=== PATIENT | male | born 1970 | race Caucasian/White ===

== ENCOUNTER → 2024-05-18 10:09 | Outpatient (REF) | payer MEDICARE, OTHER, SELFPAY | LOC: RAD 10:09 | PROVIDERS: ATTENDING PHYSICIAN Urology; FAMILY PHYSICIAN Family Medicine | DX: N39.0 Urinary tract infection, site not specified (principal); R33.9 Retention of urine, unspecified; N31.9 Neuromuscular dysfunction of bladder, unspecified | CPT/HCPCS: 74176 ==

== ENCOUNTER 2024-11-05 18:44 | Inpatient (IN) | payer MEDICARE, OTHER, SELFPAY ==
[2024-11-05 11:51] VITALS: BP 139/85
[2024-11-05 12:24] LABS: Hemoglobin 10.6 g/dL (13.0-18.0); Mean Corp Hgb Conc. 33.1 g/dL (33.0-37.0); Mean Corpuscular Hgb 26.5 pg (27.0-31.0); Mean Platelet Volume 10.5 fL (7.4-10.4); Platelet Count 230 10^3/uL (130-400); Red Cell Dist. Width 13.4 % (11.5-14.5); White Blood Cell Count 17.7 10^3/uL (4.8-10.8)
[2024-11-05 12:36] LABS: ALT (SGPT) 46 U/L (0-50); AST (SGOT) 60 U/L (17-59); Alkaline Phosphatase 92 U/L (38-126); Blood Urea Nitrogen 45 mg/dl (9-20); Calcium 8.1 mg/dl (8.4-10.2); Carbon Dioxide 24 mmol/L (22-30); Chloride 94 mmol/L (98-107); Glucose 111 mg/dl (70-99); Potassium 3.9 mmol/L (3.5-5.1); Sodium 128 mmol/L (135-145); Total Bilirubin 0.8 mg/dl (0.2-1.3); Total Protein 6.4 g/dl (6.3-8.2); eGFR > 60.00
[2024-11-05 12:37] LABS: % Basophils 0.4 % (0-2); % Eosinophils 0.1 % (0-6); % Immature Granulocytes 2.2 % (0-0.5); % Lymphocytes 2.8 % (20.5-51.1); % Monocytes 3.8 % (1.7-9.3); % Neutrophils 90.7 % (42.2-75.2); Absolute Basophils 0.1 10^3/uL (0-0.2); Absolute Immature Granulocytes 0.4 10^3/uL (0-0.05); Absolute Lymphocytes 0.5 10^3/uL (1.2-3.4); Absolute Monocytes 0.7 10^3/uL (0.1-0.6); Absolute Neutrophils 16.1 10^3/uL (1.4-6.5); Nucleated Red Blood Cells % 0 % (-)
--- NOTE | 2024-11-05 13:58 | ED.GENMED ---
History of Present Illness
General
Chief Complaint: Rectal Bleeding
Source: patient and spouse
Time Seen by Provider: 11/05/24 13:34
History of Present Illness
History of Present Illness:
54-year-old male presents to the emergency room complaining of generalized weakness, swelling in his scrotum, blood dripping from his rectum when he sat on his shower chair and some lower abdominal pain. Patient is paraplegic after having
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 He has a stoma in the right lower quadrant which he catheterizes for his urine. Patient does see wound care for small wound at the top of his sacrum. He was there last week. For the past several days the patient
had some nausea and vomiting as well as diarrhea. The scrotal redness and swelling he noticed about 2 to 3 days ago. Today the scrotal swelling seemed to have increased dramatically. He denies fever. No one else is sick. Patient lacks sensation
from about the umbilicus down.
Phy Exam
Physical Exam
Physical Exam:
General: Awake, Alert, Oriented X3. Appears unwell
Vitals: Tachycardic
Head: Atraumatic
Eyes: Pupils equal, EOMI
Throat: Airway intact, no exudates
Neck: Trachea midline
Lungs: Clear and equal b/l
Heart: Tachycardic, regular rate, no murmurs
Abd: Soft, Nontender, No pulsatile mass
Rectal: External hemorrhoids noted, there is significant erythema noted about the perineum and lower buttocks bilaterally. There is a wound with an eschar noted essentially over the left ischial tuberosity region. There is also some other skin
breakdown on the left. The area is indurated and angry looking. Patient is insensate in this regions so unable to tell if there is tenderness.
Neuro: Paraplegic
Skin: Warm, dry, no rash
Extremities: pulses equal b/l, no edema
Course
Orders/Labs/Results
Orders:
Orders
11/05/24 12:05
Complete Blood Count/With Diff Urgent
Comprehensive Metabolic Panel Urgent
Serum Osmolality Urgent
Comment: ADD ON
11/05/24 13:22
Add On- LAB Urgent
Tests Added?: serum osmolality
CT Abd/Pel (IV only)-DH only Urgent
Comment:
Reason For Exam: abd pain/rectal bleeding
11/05/24 13:37
STOOL [C difficile Antigen & Toxins] Urgent
BETTY Source: Feces/Stool
Specimen Description:
Stool Culture Urgent
BETTY Source: Feces/Stool
Specimen Description:
11/05/24 13:55
0.9% Sodium Chloride 1000 ml [Nss] 1,000 ml IV BOLUS
Ketorolac [Toradol] 15 mg IV NOW STA
11/05/24 13:57
Piperacillin/Tazo 4.5 Gram [Zosyn] 4.5 gram in 100 ml IV NOW
11/05/24 14:08
Lactic Acid Q4H
Comment: CANCEL 2nd LACTIC ACID IF 1st LACTIC ACID IS LESS THAN 2
11/05/24 14:18
Blood Culture Urgent
BETTY Source: Blood/Venous
Specimen Description:
11/05/24 14:50
Vancomycin [Vancocin] 2,000 mg 0.9% Sodium Chloride 500 ml [Nss] 500 ml IV NOW
11/05/24 15:22
Blood Culture Urgent
BETTY Source: Blood/Venous
Specimen Description:
Abnormal Lab Results
11/05/24
12:05
WBC 17.7 H 10^3/uL
(4.8-10.8)
RBC 4.00 L 10^6/uL
(4.70-6.10)
Hgb 10.6 L g/dL
(13.0-18.0)
Hct 32.0 L %
(39.0-52.0)
MCH 26.5 L pg
(27.0-31.0)
MPV 10.5 H fL
(7.4-10.4)
Abs Immat Gran (auto) 0.4 H 10^3/uL
(0-0.05)
Absolute Neuts (auto) 16.1 H 10^3/uL
(1.4-6.5)
Absolute Lymphs (auto) 0.5 L 10^3/uL
(1.2-3.4)
Absolute Monos (auto) 0.7 H 10^3/uL
(0.1-0.6)
Immature Gran % 2.2 H %
(0-0.5)
Neutrophils % 90.7 H %
(42.2-75.2)
Lymphocytes % 2.8 L %
(20.5-51.1)
Sodium 128 L mmol/L
(135-145)
Chloride 94 L mmol/L
(98-107)
BUN 45 H mg/dl
(9-20)
Glucose 111 H mg/dl
(70-99)
Calcium 8.1 L mg/dl
(8.4-10.2)
AST 60 H U/L
(17-59)
Albumin 3.0 L g/dl
(3.5-5.0)
11/05/24 12:05
11/05/24 12:05
Vital Signs
Initial and Last Documented VS:
Initial Vital Signs
Temp Pulse Resp BP Pulse Ox
98.8 F 110 18 139/85 98
11/05/24 11:51 11/05/24 11:51 11/05/24 11:51 11/05/24 11:51 11/05/24 11:51
Last Documented Vital Signs
Temp Pulse Resp BP Pulse Ox
99.9 F 98 19 110/52 96
11/05/24 15:30 11/05/24 16:49 11/05/24 16:49 11/05/24 16:49 11/05/24 16:49
MDM/Problems Addressed
Differential Diagnosis Includes:
Cellulitis, abscess, viral illness
MDM/Problems Addressed:
54-year-old male presents with multiple complaints. He is found to be febrile here. He on physical exam has significant erythema and some wounds on the buttocks. I do not believe he is Ankita's gangrene as there is no necrotic appearing tissue.
CT shows induration but no air. Patient will be admitted to the hospital for close monitoring, antibiotics, IV fluids
Chronic conditions affecting care: Other (Paraplegia)
*Radiology
Radiology exam reviewed: radiology read reviewed
*Pulse Oximetry
Patient hypoxic: no
*M[employer] Interpretation
Rate: normal
Interpretation: normal
Rhythm: sinus
*Critical Care Note
Total Time (30-74mins, 75-104mins- exclusive of procedures): 40 min
comment:
Critical care statement: A total of 40 minutes of critical care time was provided for this patient. This includes management of unstable vital signs, evaluation of the patient at bedside, reviewing the patient's pertinent medical records, discussion
with consultants, review of old EKGs and review of pertinent medical records. This time with separate from time utilized to perform the aforementioned documented procedures
ED Attending Note
-
Portions of this chart may have been created with voice recognition software.� Occasional wrong word or��sound alike� substitutions may have occurred due to the inherent limitations of voice recognition software.
Discharge Plan
Departure
Patient Disposition: Admit
Date of Disposition: 11/05/24
Time of Disposition: 17:19
Admit to: IMU
Presentation/result/management discussed w/ accepting MD/DO: Hospitalist
Condition: Serious
Discharge Problem:
Cellulitis of buttock, left, Cellulitis, scrotum
Prescriptions:
No Action
metoprolol tartrate [Lopressor] 50 mg Tablet
50 mg PO BID
aspirin 81 mg Tablet,Delayed Release (Dr/Ec)
81 mg PO DAILY
methenamine hippurate 1 gram Tablet
1 g PO BID
ascorbic acid (vitamin C) [Vitamin C] 500 mg Tablet
500 mg PO BID
lisinopril 10 mg Tablet
10 mg PO DAILY
gentamicin 40 mg/mL solution
2,400 mg Q48H
Rx Instructions:
60ML VIA IRRIGATION BLADDER
cholecalciferol (vitamin D3) [Vitamin D3] 25 mcg (1,000 unit) Tablet
25 mcg PO DAILY
omega 2-sln-kzp-fish oil [Fish Oil] 60-90-500 mg Capsule
1 cap PO BID
Patient Own Baclofen Pump
0 mcg SC .VIA PUMP
Rx Instructions:
MORPHINE 6320MCG, BACLOFEN 494.6MCG, BUPIVACAINE 8243MCG PER DAY. BOLUS=MORPHINE 385MCG, BACLOFEN 30.1MCG, BUPIVACAINE 502MCG PER DAY
Referrals:
Yg Chand MD [Family Provider] -
Interventions
Interventions:
*Risk Screen - Suicide Last Done: 11/05/24 11:51
*General Assessment Last Done: 11/05/24 14:37
*Neglect/Abuse Screening Last Done: 11/05/24 11:51
ED- Fall Risk Assessment Last Done: 11/05/24 14:35
*ED COVID-19 Vaccine History Last Done: 11/05/24 14:37
ED- Cardiac Assessment Last Done: 11/05/24 14:35
ED- Pulmonary Assessment Last Done: 11/05/24 14:36
Discharge Date and Time
Print Language: CZECH
[2024-11-05 14:06] VITALS: BMI 28.7
[2024-11-05] MEDS: NSS 1000 IV ×2 (14:17→22:15)
[2024-11-05] MEDS: ZOSYN 100 IV (14:17)
[2024-11-05] MEDS: TORADOL 15 MG IV (14:17)
[2024-11-05 14:19] VITALS: BP 123/66
[2024-11-05 14:25] LABS: Osmolality Serum 279 mOsm/kg (275-300)
[2024-11-05 14:29] LABS: Lactic Acid 1.4 mmol/L (0.7-2.0)
[2024-11-05] MEDS: VANCOCIN 540 MG IV (15:29)
[2024-11-05 15:30] VITALS: BP 113/61
[2024-11-05 16:49] VITALS: BP 110/52
--- NOTE | 2024-11-05 17:59 | HPS.HSE ---
Family Physician
-
Family Physician: Yg Chand
Chief Complaint
-
diarrhea, skin infection
History of Present Illness
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 For the past 3 to 4 days he
has been having nausea and vomiting as well as diarrhea and abdominal pain with chills.
Over the past few days he is also noticed redness and swelling in the scrotum and the perianal skin. He does not have sensation below the umbilicus but states that he feels pressure in the scrotum.
Today he noticed that in addition to the diarrhea he has been having blood leaking out of his rectum. He denies any rectal discomfort although he is not able to tell.
He sees wound care for small wound at the top of his sacrum. He was at wound care last week and it looks stable.
He does not smoke or drink alcohol.
Medical History
Past Medical History
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
Past Surgical History: Reports Other (T6 AVM surgery )
Social History
Tobacco: Non-smoker
Alcohol: None
Drug: None
Family History
Family History: Not pertinent
Allergies / Home Medications
Allergies reflects when Allergies were last updated in [facility].
Home Medications with original date entered in [email or web address]
Allergy/Medication List:
Allergies
Allergy/AdvReac Type Severity Reaction Status Date / Time
pregabalin [From Lyrica] Allergy Hives Verified 11/05/24 11:55
Home Medications
Patient Own Baclofen Pump 0 mcg SC .VIA PUMP 11/05/24
ascorbic acid (vitamin C) 500 mg tablet (Vitamin C) 500 mg PO BID 11/05/24
aspirin 81 mg tablet,delayed release 81 mg PO DAILY 11/05/24
cholecalciferol (vitamin D3) 25 mcg (1,000 unit) tablet (Vitamin D3) 25 mcg PO DAILY 11/05/24
gentamicin 40 mg/mL injection solution 2,400 mg Q48H 11/05/24
lisinopril 10 mg tablet 10 mg PO DAILY 11/05/24
methenamine hippurate 1 gram tablet 1 g PO BID 11/05/24
metoprolol tartrate 50 mg tablet (Lopressor) 50 mg PO BID 11/05/24
omega 6-snh-xma-fish oil 60 mg-90 mg-500 mg capsule (Fish Oil) 1 cap PO BID 11/05/24
Review of Systems
-
History Source: Patient
A 12 point ROS was completed and negative except as noted: Yes
Constitutional: Reports No Symptoms
EENT: Reports No Symptoms
Respiratory: Reports No Symptoms
Cardiac: Reports No Symptoms
Abdomen/GI: Reports See HPI
: Reports No Symptoms
Musculoskeletal: Reports No Symptoms
Skin: Reports See HPI
Neurological: Reports No Symptoms
Endocrine: Reports No Symptoms
Hematologic/Lymphatic: Reports No Symptoms
Psych: Reports No Symptoms
Physical Exam
Vital Signs
Vital Signs
Temp Pulse Resp BP Pulse Ox
99.9 F 98 19 110/52 96
11/05/24 15:30 11/05/24 16:49 11/05/24 16:49 11/05/24 16:49 11/05/24 16:49
Physical Exam
General: Well Developed, Well Nourished and No Apparent Distress
HEENT: NormoCephalic, Moist mucous membranes and Atraumatic
Respiratory: Clear
Cardiac: S1/S2 and Regular Rhythm; No Murmur or Rub
GI: Soft, Non Tender, Non Distended and Normal Bowel Sounds; No Organomegaly
Rectal: Deferred by Provider
Musculoskeletal: No Clubbing, No Cyanosis and No Edema
Skin: Other (significant erythema surrounding the perineum and lower buttocks, there is wound with eschar over the left ischial tuberosity); No Rash
Neuro: Nonfocal/grossly intact
Laboratory Results
-
11/05/24 12:05
11/05/24 12:05
Laboratory Results
Lactic Acid Cancelled 11/05/24 18:00
Total Bilirubin 0.8 mg/dl (0.2-1.3) 11/05/24 12:05
AST 60 U/L (17-59) H 11/05/24 12:05
ALT 46 U/L (0-50) 11/05/24 12:05
Alkaline Phosphatase 92 U/L (38-126) 11/05/24 12:05
Data Reviewed
-
Lab Data: Labs Reviewed by me
Old Records: Reviewed
Impression/Plan
-
IMPRESSION:
PLAN:
# Likely acute gastroenteritis with hematochezia
# Hematochezia secondary to acute gastroenteritis versus hemorrhoidal bleeding
# History of hemorrhoidal bleeding
-Rectal exam showed external hemorrhoids,
-CT abdomen pelvis shows no abdominal pathology
-Check stool studies, C. difficile
-Continue to monitor hemoglobin which is currently 10.6.
-Clear liquid diet for now
-Hold aspirin
# Sepsis (fever, leukocytosis, tachycardia ) secondary to buttock/scrotal cellulitis secondary to ischial tuberosity infected wound/acute gastroenteritis
-significant erythema surrounding the perineum and lower buttocks, there is wound with eschar over the left ischial tuberosity which is a new wound as per patient
-No evidence of Ankita's gangrene
-There is also a chronic sacral wound more superior which is being treated by wound care
-CT abdomen pelvis shows increased density of the subcutaneous tissues of the left buttocks concerning for severe cellulitis, no evidence of abscess formation, mild volume overload of third spacing
-IV fluids
-Vancomycin/Zosyn
-Check wound culture
-Check blood cultures
-Wound care consulted
# Hyponatremia secondary to volume losses
-Monitor with IV fluid
Essential hypertension
-Continue lisinopril, metoprolol
History of T6 spinal AVM status post surgery with residual paraplegia
-He does not have sensation below umbilicus
-Patient has baclofen pump
Stoma for urinary catheterization
-Patient injects gentamicin every 48 hours through stoma
Full code
DVT prophylaxis�SCDs
Clear liquid diet
[2024-11-05 19:45] VITALS: BP 112/61; BMI 27.6
--- NOTE | 2024-11-05 20:00 | PTCARENOTE ---
pt received as admission from ED to room 1145-01. Pt AAOX3, denies pain at this time. Pt able to slide himself over from stretcher to bed. Pt reports he has no feeling in his lower extremities- history T6 spinal AVM status post surgery with residual
paraplegia. pt has stoma on right abdomen which he states he self catheterizes- provider notified, order received for patient to self cath prn. Pt turned and wound dressings changed- pt has significant wounds on sacrum, left buttocks and left groin.
wound consult in. pt tolerated clear liquids, denies nausea. no diarrhea at this time. pt updated on plan of care.
[2024-11-05] MEDS: ZOSYN 50 IV (22:15)
[2024-11-05] MEDS: VITAMIN C 500 MG PO (22:15)
[2024-11-05] MEDS: LOPRESSOR 50 MG PO (22:15)
[2024-11-05] MEDS: NEURONTIN 300 MG PO (22:15)
[2024-11-05 23:12] VITALS: BP 110/57
[2024-11-06] MEDS: ZOSYN 50 IV ×4 (04:12→23:07)
[2024-11-06] MEDS: VANCOCIN 275 MG IV ×2 (05:05→18:10)
[2024-11-06 08:00] VITALS: BP 100/46
[2024-11-06 08:21] LABS: Hematocrit 26.4 % (39.0-52.0); Hemoglobin 8.9 g/dL (13.0-18.0); Mean Corp Hgb Conc. 33.7 g/dL (33.0-37.0); Mean Corpuscular Hgb 27.1 pg (27.0-31.0); Mean Corpuscular Volume 80.5 fL (80.0-94.0); Mean Platelet Volume 10.6 fL (7.4-10.4); Platelet Count 176 10^3/uL (130-400); Red Blood Cell Count 3.28 10^6/uL (4.70-6.10); Red Cell Dist. Width 13.6 % (11.5-14.5); White Blood Cell Count 12.2 10^3/uL (4.8-10.8)
[2024-11-06 08:54] LABS: ALT (SGPT) 33 U/L (0-50); AST (SGOT) 40 U/L (17-59); Albumin 2.4 g/dl (3.5-5.0); Alkaline Phosphatase 73 U/L (38-126); Blood Urea Nitrogen 32 mg/dl (9-20); Calcium 7.7 mg/dl (8.4-10.2); Carbon Dioxide 24 mmol/L (22-30); Chloride 97 mmol/L (98-107); Estimated Creatinine Clearance 85 ml/min; Glucose 118 mg/dl (70-99); Potassium 3.8 mmol/L (3.5-5.1); Sodium 131 mmol/L (135-145); Total Bilirubin 0.5 mg/dl (0.2-1.3); Total Protein 5.5 g/dl (6.3-8.2); eGFR > 60.00
--- NOTE | 2024-11-06 08:58 | PHA.VAN.IN ---
Assessment
- Assessment
Renal Function: Unknown baseline
Concomitant Antimicrobials: piperacillin/tazobactam
Plan
- Plan
Initial / Loading Dose: 2000mg - 11/05 15:29 plus received 1250mg x1 at 05:05
Maintenance Regimen: dosing by level - give additional 1250mg x1 at 1800
Monitoring: random 11/07 0600
Will hold off on scheduling dosing given elevated SCR in patient with paraplegia
Pharmacokinetics Vancomycin I
- -
Patient Age: 54
Patient Sex: Male
Vancomycin Day #: 1
Indication: Skin And Soft Tissue
Requesting Provider: Dr. Harding
Pertinent Antimicrobial Allergies:
no pertinent antibiotic allergies
Height / Weight:
Height 6 ft 3 in
Actual Weight 100.301 kg
Pertinent Past Medical History: Paraplegia
- Vital Signs / Lab Results
Temp Pulse Resp BP Pulse Ox
98.4 F 78 16 110/57 100
11/05/24 23:12 11/05/24 23:12 11/05/24 23:12 11/05/24 23:12 11/05/24 23:12
Lab Results - Hematology
11/05/24 11/06/24
12:05 07:37
WBC 17.7 H 12.2 H
Lab Results - Chemistry
11/05/24 11/06/24
12:05 07:37
BUN 45 H 32 H
Creatinine 1.3 1.2
Estimated Creat Clear 85
Albumin 3.0 L 2.4 L
11/05/24 11/05/24
14:08 18:00
Lactic Acid 1.4 Cancelled
Microbiology Results
11/05/24 22:09 Gram Stain - Preliminary
Back
11/05/24 15:22 Blood Culture - Preliminary
Blood/Venous Positive culture in progress
Gram Stain - Preliminary
11/05/24 14:18 Blood Culture - Preliminary
Blood/Venous Positive culture in progress
Gram Stain - Preliminary
[2024-11-06] MEDS: NSS 1000 IV (09:02)
[2024-11-06] MEDS: NEURONTIN 300 MG PO ×2 (09:03→20:08)
[2024-11-06] MEDS: LOPRESSOR 50 MG PO ×2 (09:03→20:07)
[2024-11-06] MEDS: VITAMIN D3 (cholecalciferol) 25 MCG PO (09:03)
[2024-11-06] MEDS: ZESTRIL 10 MG PO (09:03)
[2024-11-06] MEDS: VITAMIN C 500 MG PO ×2 (09:03→20:07)
[2024-11-06 09:05] LABS: Absolute Neutrophils -Man Diff 11.3 10^3/uL (1.4-6.5); Anisocytosis 1+; Band Neutrophils 13 % (0-3); Hypochromasia 1+; Lymphocytes 2 % (20-51); Metamyelocytes 1 % (-); Monocytes 4 % (2-9); Normal RBC Morphology No; Platelets Checked Yes; Polychromasia 1+; Segmented Neutrophils 80 % (42-75); Total Cells Counted 100
--- NOTE | 2024-11-06 09:12 | W.PN.HOSP.TC ---
Addendum entered and electronically signed by Marquis Robles MD 11/07/24 09:11:
Sepsis secondary to gram-positive cocci bacteremia, likely source soft tissue/skin however does have a spinal baclofen pump
-Findings at this time are not consistent with a necrotizing infection however has been started on antibiotics if not improving white count and continues to mount fevers may have a deeper infection and may require surgical intervention with
additional imaging
-Continue current IV antibiotics
-Repeat blood cultures ordered
-2D echocardiogram ordered
-WIll get testicular ultrasound as there is some swelling of the testicles
It should be noted he does not have feeling from about T10 and down.
--Should be noted he has a known hx of righht sided anal fistula, at this time I do not notice a left sided fistula, will continue to monitor for this
Hyponatremia
Likely dietary, rec to increase po intake
Original Note:
Today's Communication/Plan
-
;/
Assessment / Plan
Assessment / Plan
Assessment/plan
#Sepsis POA secondary to right buttock cellulitis versus ischial tuberosity wound
-CT abdomen pelvis increased density of the subcutaneous tissues of the left buttocks concerning for severe cellulitis, no evidence of abscess formation, mild volume overload of third spacing
-Initiated on IV antibiotics Vanco and Zosyn
-Blood cultures x 2 pulmonary gram-positive cocci in chains
-Follow cultures
-ID consulted, input appreciated
-Check echocardiogram
-Wound care
-Scrotal erythema, will check ultrasound of scrotum
#Hematochezia secondary to hemorrhoidal bleeding
-External hemorrhoids on rectal exam
-CT abdomen as above
-Monitor H&H
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 Chand 2018 with findings right posterior anal fistula with external opening at the rightposterior anal margin and internal opening in the right posterior anal
canal with a moderate amount of muscle involvement.
-Colorectal surgery consulted
-Clear liquids
-Hold aspirin
#Hyponatremia secondary to volume loss
-Resolving with IV fluids
#Essential hypertension
Continue home lisinopril, metoprolol
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
-Loss of sensation below umbilicus
-Continue home baclofen pump
#Stoma for urinary catheterization
-Patient injects gentamicin every 48 hours through stoma
CODE STATUS full code
DVT prophylaxis�SCDs
Anticipated Discharge: > 48 hours
Subjective/Interval History
-
Date of Service: November 06, 2024
Objective Data
-
Labs:
Laboratory Results
11/06/24
07:37
WBC 12.2 H
Hgb 8.9 L
Hct 26.4 L
Plt Count 176 D
Sodium 131 L
Potassium 3.8
Chloride 97 L
Carbon Dioxide 24
BUN 32 H
Creatinine 1.2
Glucose 118 H
Calcium 7.7 L
Total Bilirubin 0.5
AST 40
ALT 33
Alkaline Phosphatase 73
Vital Signs:
Vital Signs
Temp Pulse Resp BP Pulse Ox
98.4 F 64 16 100/46 100
11/05/24 23:12 11/06/24 09:03 11/05/24 23:12 11/06/24 09:03 11/05/24 23:12
I&O
11/05/24 11/06/24 11/07/24
06:59 06:59 06:59
Intake Total 0 / 1939 250 / 250
Output Total 1000 / 1000
Balance 940 / 940 250 / 250
Review of Systems
-
All other systems: Reviewed and negative (Except as documented)
Physical Exam
-
General: Well Developed, Well Nourished and No Apparent Distress
HEENT: Normocephalic
Respiratory: Clear to Auscultation; Negative Wheezes or Crackles
Cardiac: S1/S2 and Murmur (2/6 systolic murmur at the apex)
GI: Soft, Nontender, Nondistended and Ostomy (Right lower quadrant)
Skin: Other (Wound in his sacral region)
Neuro: Awake, Alert, Oriented and AO x 3
Psych: Calm
--- NOTE | 2024-11-06 10:34 | CM ---
Addendum entered by Yasmine Blue 11/06/24 14:23:
Per WOC, will need air mattress
Pt in agreement with hospital bed with air mattress
Provider choices discussed-pt has no provider preference
Call with [facility]
Both bed and mattress will require auth through insurance
CM requested PT/OT as pt noted to be a 2 person nursing assist
If home on dc, will need hospital bed and air mattress arranged
Will await outcome of therapy evals
Original Note:
CM met with pt bedside
Pt resides with his spouse in a 2SH with ramp entrance and stairglide to 2nd floor
Pt with paraplegia and W/C bound
He is independent with transfers by squatting and pivoting
He has W/C which he self propels in the community
He has a small power W/C for use inside the home
Pt has a shower chair and he is independent with all transfers and personal care
Pt has a stoma which he self caths- supplies through [employer]
Pt has medical transport provided through the Act 150 waiver
Pt was attending the outpt wound center at [facility]
PCP- [facility]
Rx- [facility] [address] [facility]
If VN needs on dc, would prefer [facility]
Spouse works out of the home
Discharge Disposition- anticipate home, watch for WOC/VN needs
--- NOTE | 2024-11-06 10:53 | PTCARENOTE ---
pt aaox3. states pain is moderate pt pain pump running controlled by pt. pt able to turn self . encouraged to turn often. wound care done by wound care nurse. urostomy stoma pink. room air breath sounds clear.
--- NOTE | 2024-11-06 11:19 | CON.ID ---
Addendum entered and electronically signed by Marquis Robles MD 11/06/24 13:51:
Sepsis secondary to gram-positive cocci bacteremia, likely source soft tissue/skin however does have a spinal baclofen pump
-Findings at this time are not consistent with a necrotizing infection however has been started on antibiotics if not improving white count and continues to mount fevers may have a deeper infection and may require surgical intervention with
additional imaging
-Continue current IV antibiotics
-Repeat blood cultures ordered
-2D echocardiogram ordered
-WIll get testicular ultrasound as there is some swelling of the testicles
It should be noted he does not have feeling from about T10 and down.
--Should be noted he has a known hx of righht sided anal fistula, at this time I do not notice a left sided fistula, will continue to monitor for this
Hyponatremia
Likely dietary, rec to increase po intake
Original Note:
Consultation
-
Date/Time Consultation Requested: 11/06/2024 0914
Date/Time Consultation Performed: 11/06/2024 1111
Requesting Provider: Dr. Robles
Performing Provider: Dr. Coe
Reason for Consultation: Buttock wound; leukocytosis
Chief Complaint / Past History
History of Present Illness
Connor Babcock is a 54-year-old man being evaluated at the request of Dr. Robles in regards to leukocytosis and buttock wounds. History is obtained from chart review, along with patient interview.
The patient has a significant past medical history of paraplegia following T6 AVM surgery. He has a sensory level above his umbilicus area. Additionally, he has a prior history of anal fistula. He follows [facility] for heel wound,
and approximately 3 weeks ago a sacral wound developed. Over the past week he felt as if he had a stomach bug, with some nausea and diarrhea. Over the past several days he had worsening of his generalized weakness. He also developed some scrotal
area swelling and some lower abdominal pain/discomfort. On the day of admission he recalls seeing blood while he was sitting in his shower chair. Given that he was not feeling well he asked his to bring him to the hospital for further
evaluation.
Here, he was noted to have an elevated white count. Imaging of his abdomen and pelvis has revealed subcutaneous tissue swelling in the left buttock region concerning for severe cellulitis. Infectious Diseases is asked to comment upon further
antimicrobial therapy.
The patient denies any recent fevers or chills, although he reports occasional feeling cold. He denies any cough or congestion.
Past History
Additional Past Medical History:
Paraplegia
Hemorrhoids
Additional Past Surgical History:
Baclofen pump placement
T6 AVM surgery
Allergy History:
pregabalin [From Lyrica] Allergy (Verified 11/05/24 11:55)
Hives
Medications Reviewed: Yes
Current Antibiotics:
Vancomycin (dosing per pharmacy)
Zosyn 3.375 g IV every 6 hours
Social History
Tobacco: Non-Smoker
Alcohol: None
Drug: None
Personal:
Living: With Family
Family History
Family History: Not Pertinent
Review of Systems
Vital Signs
Temp Pulse Resp BP Pulse Ox
98.8 F 64 18 100/46 100
11/06/24 08:00 11/06/24 09:03 11/06/24 08:00 11/06/24 09:03 11/06/24 08:00
Physical Exam
Physical Exam
Constitutional: No Acute Distress, Comfortable and Non-toxic
Head: Normocephalic
Eyes: Pupils Equal, Pupils Round, No Conjunctival Hemorrhage and Sclera Anicteric
Oral: No Thrush and No Ulcers
Cardiovascular: Regular Rate and S1/S2; Negative S3/S4
Pulmonary: Clear; Negative Wheezes, Rales or Rhonchi
Gastrointestinal: Soft, Non Tender, Non Distended, Normal Bowel Sounds, No Rebound, No Guarding and Other (Right lower quadrant ostomy for urine catheter in place.)
Extremities: Negative Edema, Cyanosis or Erythema
Wound: Other (Multiple wounds in the sacral/buttock region. Mild amount of dermal necrosis noted. See Wound care photos.)
Neurological: Awake and Alert
Psychological: Calm
Lab / Diagnostic Study Results
11/06/24 07:37
11/06/24 07:37
Abs Immat Gran (auto) 0.4 10^3/uL (0-0.05) H 11/05/24 12:05
Absolute Neuts (auto) 16.1 10^3/uL (1.4-6.5) H 11/05/24 12:05
Absolute Lymphs (auto) 0.5 10^3/uL (1.2-3.4) L 11/05/24 12:05
Absolute Monos (auto) 0.7 10^3/uL (0.1-0.6) H 11/05/24 12:05
Absolute Basos (auto) 0.1 10^3/uL (0-0.2) 11/05/24 12:05
Total Counted 100 11/06/24 07:37
Immature Gran % 2.2 % (0-0.5) H 11/05/24 12:05
Neutrophils % 90.7 % (42.2-75.2) H 11/05/24 12:05
Lymphocytes % 2.8 % (20.5-51.1) L 11/05/24 12:05
Monocytes % 3.8 % (1.7-9.3) 11/05/24 12:05
Eosinophils % 0.1 % (0-6) 11/05/24 12:05
Basophils % 0.4 % (0-2) 11/05/24 12:05
Abs Neuts (Manual) 11.3 10^3/uL (1.4-6.5) H 11/06/24 07:37
Segmented Neutrophils 80 % (42-75) H 11/06/24 07:37
Band Neutrophils 13 % (0-3) H 11/06/24 07:37
Lymphocytes (Manual) 2 % (20-51) L 11/06/24 07:37
Lactic Acid Cancelled 11/05/24 18:00
Microbiology Results
Micro:
11/06/24 10:13 Blood Culture - Pending
Blood/Venous
11/06/24 09:29 Blood Culture - Pending
Blood/Venous
11/05/24 22:09 Wound Culture - Pending
Back Gram Stain - Preliminary
11/05/24 15:22 Blood Culture - Preliminary
Blood/Venous Positive culture in progress
Gram Stain - Preliminary
11/05/24 14:18 Blood Culture - Preliminary
Blood/Venous Positive culture in progress
Gram Stain - Preliminary
Imaging:
11/05/2024 CT abdomen/pelvis: There is increased density in the subcutaneous tissues of the left buttock concerning for severe cellulitis. No evidence for abscess formation. Diffuse bladder wall thickening is noted, but stable. There is mild fecal
material in the colon. Please see full dictation for additional detail.
Assessment / Plan
Buttock cellulitis/SSTI
Leukocytosis
Fever
Hyponatremia
Bacteremia (2 of 4 bottles from admission with GPC chains)
Hx paraplegia following T6 AVM surgery
Recommendations:
Continue with current antibiotics.
Follow Vanco levels closely to avoid nephrotoxicity.
Repeat blood cultures on 11/07/24 to assess clearance.
Await further information from current blood cultures to guide antimicrobial selection and potential de-escalation.
Monitor white count and temperature curve.
Follow clinical exam for any worsening that may suggest deeper infection or need for debridement.
--- NOTE | 2024-11-06 11:26 | WOUNDNOTE ---
L SACRUM, BUTTOCKS AND R HIP
--- NOTE | 2024-11-06 11:27 | WOUNDNOTE ---
SACRUM CLOSER VIEW
--- NOTE | 2024-11-06 11:28 | WOUNDNOTE ---
L BUTTOCK, L ISCHIUM AND L POSTERIOR THIGH
--- NOTE | 2024-11-06 11:30 | WOUNDNOTE ---
WON RN note: Patient admitted with cellulitis of L buttock and scrotum.
See H&P for complete history. Lives with at home.
PMH: Reports from H&P- Other (T6 spinal AVM status post surgery with residual paraplegia, right lower quadrant stoma for urine catheterization, sacral wound, hypertension)
Past Surgical History: Reports Other (T6 AVM surgery )
Wound Location and type/assessment: Patient admitted with: Sacral PI, unstageable vs DTI. L buttock has stage 2 PI with ring of dark purple on edges. Suspect started out as a blood blister. L ischium with unstageable PI. L groin with full thickness
wound, yellow slough with edges pink, partial thickness open weeping wound that extends to posterior thigh. Scrotum with swelling and redness, studies showed severe cellulitis. Drainage large serosanguineous, mild odor. Wound culture on buttocks is
pending. Dr. Coe at bedside, showed wound care photos, dressing just changed. L heel with essentially healed PI, intact dry scabs remain. L 2nd toe with healing abrasion, shallow pink base. Patient reports he follows at [facility] on regular basis. Can transfer self to wheelchair and turns self when in bed. Patient confirmed he has offloading heel boots that he wears when in bed. Has new motorized W/C in house with ROHO cushion and regular W/C for when he goes out.
Patient states he goes to the gym to strengthen arms. Does not currently have visiting nurses, CM note states getting set up with [facility]. Has regular bed at home, discussed with patient importance of proper offloading when in bed. Recommended air
mattress and is willing to look into this. Will notify [facility], [facility] to recommend company's he can call for rental of air mattress.
Appetite: Good, encourage protein in diet.
Pressure redistribution devices in place: On air mattress, encourage turning. Offloading heel boots.
Plan: Santyl dressing to sacrum and L ischium all others local wound care. Dressings changed today before going down for testing. Heels with foam adhesives. Called [employer] for TruVue lite heel boots and dressings, ie; Xeroform, Abd pads and alginate.
Will confirm orders with hospitalist and updated nurse Jens. Updated care plan and will follow as needed.
Note to case management of equipment requested for discharge:air mattress.
Recommend follow up at [facility] upon discharge.
--- NOTE | 2024-11-06 14:22 | CON.CRS ---
Medical History
-
Chief Complaint: scrotal pressure
History of Present Illness:
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 He reports chronic constipation with
daily disimpaction, but for the past several days, he has had diarrhea. He has been following with the wound center in [place] for a sacral wound. On admission, he was noted to have cellulitis of the left buttock. On exam there is significant
erythema to the left buttock and an area of white slough tissue to the base of the buttock and another area in the perineum with one edge covered with necrotic tissue which is a little boggy underneath. No crepitus or fluctuance noted but induration
is present around the left buttock into the anus and around up the perineum. With a purple ring around what was likely a previous blister with reddened macerated dermis underlying. There is mildly odorous serous fluid noted from wounds. He was
febrile on presentation but with no further fevers. He denies nausea or vomiting.
Past Medical History
Past Medical History: HTN and Other (T6 avm with residual paraplegia, no sensation from umbilicus down, anal fistula and sacral wounds)
Past Surgical History: Orthopedic (T6 surgery) and Other (THD, tag excision, fistulotomy in 2019, Baclofen pump)
Social History
Tobacco: Non-Smoker
Alcohol: None
Family History
Family History: Reviewed & Not Pertinent
Allergies / Home Medications
Allergy/AdvReac Type Severity Reaction Status Date / Time
pregabalin [From Lyrica] Allergy Hives Verified 11/05/24 11:55
�Medication �Instructions �Recorded �Confirmed �Type
Patient Own Baclofen Pump 0 mcg SC .VIA PUMP 11/05/24 11/05/24 History
ascorbic acid (vitamin C) 500 mg 500 mg PO BID 11/05/24 11/05/24 History
tablet (Vitamin C)
aspirin 81 mg tablet,delayed 81 mg PO DAILY 11/05/24 11/05/24 History
release
cholecalciferol (vitamin D3) 25 25 mcg PO DAILY 11/05/24 11/05/24 History
mcg (1,000 unit) tablet (Vitamin
D3)
gabapentin 300 mg capsule 300 mg PO BID 11/05/24 11/05/24 History
gentamicin 40 mg/mL injection 2,400 mg Q48H 11/05/24 11/05/24 History
solution
lisinopril 10 mg tablet 10 mg PO DAILY 11/05/24 11/05/24 History
methenamine hippurate 1 gram tablet 1 g PO BID 11/05/24 11/05/24 History
metoprolol tartrate 50 mg tablet 50 mg PO BID 11/05/24 11/05/24 History
(Lopressor)
omega 0-alw-mqh-fish oil 60 mg-90 1 cap PO BID 11/05/24 11/05/24 History
mg-500 mg capsule (Fish Oil)
Review of Systems
-
History Source: Patient
All other systems: Negative unless noted
A 10 point review of systems was completed, and was negative except as per HPI.
Physical Exam
Vital Signs
Temp 98.8 F 11/06/24 08:00
Pulse 64 11/06/24 09:03
Resp Rate 18 11/06/24 08:00
Blood pressure 100/46 11/06/24 09:03
SaO2 100 11/06/24 08:00
11/05/24 11/06/24 11/07/24
06:59 06:59 06:59
Actual Weight 100.301 kg
Body Mass Index (BMI) 27.6
Lab Results / Allergies
11/06/24 07:37
11/06/24 07:37
WBC 12.2 10^3/uL (4.8-10.8) H 11/06/24 07:37
Hgb 8.9 g/dL (13.0-18.0) L 11/06/24 07:37
Hct 26.4 % (39.0-52.0) L 11/06/24 07:37
Plt Count 176 10^3/uL (130-400) D 11/06/24 07:37
Abs Immat Gran (auto) 0.4 10^3/uL (0-0.05) H 11/05/24 12:05
Neutrophils % 90.7 % (42.2-75.2) H 11/05/24 12:05
Allergy/AdvReac Type Severity Reaction Status Date / Time
pregabalin [From Lyrica] Allergy Hives Verified 11/05/24 11:55
Physical Exam
General: Well Developed and Well Nourished
Respiratory: Non Labored Respirations
GI: Soft and Non Tender
Genito-urinary: Other (scrotal edema/erythema, perineal wound with slough and edge of eschar tissue with induration from the left inner thigh around into the base of the left bottock up to the anus)
Musculoskeletal: Other (No sensation or controlled movement below the waist)
Skin: Warm
Neuro: Awake, Alert and AO x 3
Psych: Calm
Data Reviewed
-
CT Scan: Image Personally Visualized and interpreted, Report Reviewed by me, Discussed with Physician and Discussed with Patient
Labs: Labs Reviewed by me, Discussed with Physician, Discussed with Nurse and Discussed with Patient
Assessment / Plan
-
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
Suspect etiology of these wounds is recent incontinence of diarrhea in setting of absent sensation. Significant induration without fluctuance noted to the left buttock spreading into the perineum and scrotum. Significant soft tissue infection
present. Leukocytosis present but trending down. Fevers present on admission but no fevers for 24 hours now.
Keep NPO
Will plan incision and debridement in the OR
[2024-11-06 14:29] VITALS: BMI 27.6
[2024-11-06 16:00] VITALS: BP 109/49
--- NOTE | 2024-11-06 17:40 | W.PN.UPDATE ---
Update Note
Progress Note Update
Patient's case was bumped to much later due to busy OR schedule. As such, will repost for tomorrow and reassess in am. Clears ok and npo after MN ordered.
[2024-11-06] MEDS: NORCO 5/325 1 TABLET PO (23:05)
[2024-11-06 23:12] VITALS: BP 101/51
[2024-11-07] MEDS: NSS IV (01:34)
[2024-11-07] MEDS: NSS 1000 IV (01:34)
[2024-11-07] MEDS: ZOSYN 50 IV ×4 (03:57→21:39)
[2024-11-07 07:45] VITALS: BP 127/67
--- NOTE | 2024-11-07 07:58 | W.PN.HOSP.TC ---
Addendum entered and electronically signed by Marquis Robles MD 11/07/24 13:10:
Sepsis secondary to gram-positive cocci bacteremia, likely source soft tissue/skin however does have a spinal baclofen pump
-White ocunt improving, afebrile, continue iv atb per
-Continue current IV antibiotics
-Repeat blood cultures ordered
-2D echo, ef 60-65%, mild MR, no RWA
Right sided hydrocele - small on the side of urethral sphincter stimulator
-Outpt uro follow up
Hyponatremia
Likely dietary, rec to increase po intake
Original Note:
Today's Communication/Plan
-
;/
Assessment / Plan
Assessment / Plan
Assessment/plan
#Sepsis POA secondary to right buttock cellulitis versus ischial tuberosity wound
-CT abdomen pelvis increased density of the subcutaneous tissues of the left buttocks concerning for severe cellulitis, no evidence of abscess formation, mild volume overload of third spacing
-Initiated on IV antibiotics Vanco and Zosyn
-Blood cultures x 2 preliminary Strep Pyogenes
-Follow cultures
-ID consulted, input appreciated
-echocardiogram 11/06/2024- No significant valvular disease. LVEF 60 to 65%
-Wound care
#Hematochezia secondary to hemorrhoidal bleeding
-External hemorrhoids on rectal exam
-CT abdomen as above
-Monitor H&H
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 Chand 2018 with findings right posterior anal fistula with external opening at the right posterior anal margin and internal opening in the right posterior anal
canal with a moderate amount of muscle involvement.
-Colorectal surgery consulted, input appreciated
-For incision and debridement in the OR tomorrow
-N.p.o. at midnight
-Hold aspirin
#Scrotum erythema and edema
-Scrotum ultrasound 11/06/2024-Small right hydrocele. 3 mm right epididymal head cyst versus spermatocele
-Will reach out to outpatient urologist to discuss findings
-Follow-up with outpatient urology
#Essential hypertension
Continue home lisinopril, metoprolol
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
-Loss of sensation below umbilicus
-Continue home baclofen pump
#Stoma for urinary catheterization
-Patient injects gentamicin every 48 hours through stoma
CODE STATUS full code
DVT prophylaxis�SCDs
Anticipated Discharge: > 48 hours
Subjective/Interval History
-
Date of Service: November 07, 2024
Objective Data
-
Labs:
Laboratory Results
11/07/24
07:32
WBC Pending
Hgb Pending
Hct Pending
Plt Count Pending
Sodium Pending
Potassium Pending
Chloride Pending
Carbon Dioxide Pending
BUN Pending
Creatinine Pending
Glucose Pending
Calcium Pending
Vital Signs:
Vital Signs
Temp Pulse Resp BP Pulse Ox
97.6 F 65 16 101/51 98
11/06/24 23:12 11/06/24 23:12 11/06/24 23:12 11/06/24 23:12 11/06/24 23:12
I&O
11/06/24 11/07/24 11/08/24
06:59 06:59 06:59
Intake Total 1940 / 1940 3610 / 3610
Output Total 1000 / 1000 3400 / 3400
Balance 940 / 940 210 / 210
Review of Systems
-
All other systems: Reviewed and negative (Except as documented)
Physical Exam
-
General: Well Developed, Well Nourished and No Apparent Distress
HEENT: Normocephalic
Respiratory: Clear to Auscultation; Negative Wheezes or Crackles
Cardiac: Regular Rhythm and S1/S2
GI: Soft, Nontender, Nondistended and Ostomy (Right lower quadrant)
Skin: Other (Wound in his sacral region)
Neuro: Awake, Alert, Oriented and AO x 3
Psych: Calm
[2024-11-07 08:24] LABS: % Basophils 0.3 % (0-2); % Eosinophils 1.3 % (0-6); % Immature Granulocytes 1.4 % (0-0.5); % Lymphocytes 8.9 % (20.5-51.1); % Monocytes 5.6 % (1.7-9.3); % Neutrophils 82.5 % (42.2-75.2); Absolute Eosinophils 0.1 10^3/uL (0-0.7); Absolute Immature Granulocytes 0.1 10^3/uL (0-0.05); Absolute Lymphocytes 0.6 10^3/uL (1.2-3.4); Absolute Monocytes 0.4 10^3/uL (0.1-0.6); Absolute Neutrophils 5.7 10^3/uL (1.4-6.5); Hematocrit 28.5 % (39.0-52.0); Hemoglobin 9.1 g/dL (13.0-18.0); Mean Corp Hgb Conc. 31.9 g/dL (33.0-37.0); Mean Corpuscular Hgb 26.4 pg (27.0-31.0); Mean Corpuscular Volume 82.6 fL (80.0-94.0); Mean Platelet Volume 10.3 fL (7.4-10.4); Nucleated Red Blood Cells % 0 % (-); Platelet Count 211 10^3/uL (130-400); Red Blood Cell Count 3.45 10^6/uL (4.70-6.10); Red Cell Dist. Width 13.9 % (11.5-14.5)
[2024-11-07] MEDS: ZESTRIL 10 MG PO (08:24)
[2024-11-07] MEDS: OFIRMEV 100 IV (08:24)
[2024-11-07] MEDS: LOPRESSOR 50 MG PO ×2 (08:25→20:27)
[2024-11-07] MEDS: NEURONTIN 300 MG PO ×2 (08:25→20:27)
[2024-11-07] MEDS: VITAMIN D3 (cholecalciferol) 25 MCG PO (08:25)
[2024-11-07] MEDS: VITAMIN C 500 MG PO ×2 (08:25→20:27)
[2024-11-07 08:38] LABS: Vancomycin Random 11.6 ug/ml
[2024-11-07 08:40] LABS: Blood Urea Nitrogen 18 mg/dl (9-20); Calcium 7.2 mg/dl (8.4-10.2); Carbon Dioxide 24 mmol/L (22-30); Chloride 106 mmol/L (98-107); Estimated Creatinine Clearance 113 ml/min; Glucose 98 mg/dl (70-99); Potassium 3.8 mmol/L (3.5-5.1); Sodium 138 mmol/L (135-145); eGFR > 60.00
--- NOTE | 2024-11-07 08:57 | PHA.VAN.FU ---
Vancomycin Assessment / Plan
- Assessment
Renal Function: SCR Decreasing
WBC's are: WNL
In the past 24 hrs, patient has been: Afebrile
Concomitant Antimicrobials: Piperacillin/Tazobactam
- Dosing Plan
Dosing by Level: Re-dose today (1500mg)
If SrCr continues to be improved, can change dosing to scheduled dosing.
- Monitoring Plan
Random Level: 11/08/24 @0600
- Follow Up
Pharmacy will continue to follow.
Vancomycin Follow UP
- -
Patient Age: 54
Patient Sex: Male
Vancomycin Day #: 2
Indication: Skin And Soft Tissue
Requesting Provider: Dr. Harding
Pertinent Antimicrobial Allergies:
no pertinent antibiotic allergies
Height / Weight:
Height 6 ft 3 in
Actual Weight 100.301 kg
Pertinent Past Medical History: Paraplegia
- Vital Signs / Lab Results
Temp Pulse Resp BP Pulse Ox
97.3 F 74 16 127/67 100
11/07/24 07:45 11/07/24 08:25 11/07/24 07:45 11/07/24 08:25 11/07/24 07:45
Lab Results - Hematology
11/05/24 11/06/24 11/07/24
12:05 07:37 07:32
WBC 17.7 H 12.2 H 7.0
Band Neutrophils 13 H
Lab Results - Chemistry
11/05/24 11/06/24 11/07/24
12:05 07:37 07:32
BUN 45 H 32 H 18
Creatinine 1.3 1.2 0.9
Estimated Creat Clear 85 113
Albumin 3.0 L 2.4 L
11/05/24 11/05/24
14:08 18:00
Lactic Acid 1.4 Cancelled
Microbiology Results
11/05/24 22:09 Gram Stain - Preliminary
Back
11/05/24 15:22 Blood Culture - Preliminary
Blood/Venous Positive culture in progress
Gram Stain - Preliminary
11/05/24 14:18 Blood Culture - Preliminary
Blood/Venous Positive culture in progress
Gram Stain - Preliminary
Therapeutic Drug Monitoring
Random Vancomycin 11.6 ug/ml 11/07/24 07:32
[2024-11-07] MEDS: SANTYL OINTMENT 1 APPLIC TOPICAL (09:25)
--- NOTE | 2024-11-07 09:44 | W.PN.CRS1 ---
Today's Communication / Plan
-
Holding on OR today
Diet
N.p.o. at midnight
Assessment/Plan
-
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
Significant induration without fluctuance noted to the left buttock spreading into the perineum and scrotum. Significant soft tissue infection present.
Afebrile for 48 hours, WBC 7.0 from 12.2
-Will hold on operating room today given WBC is now 7.0. Patient has remained afebrile. Wound is less boggy upon palpation today.
-Will start a regular diet and keep n.p.o. at midnight in case would require incision and debridement in the OR tomorrow. Discussed this with the patient.
-Continue to trend labs and vital signs
-Discussed above plan with infectious disease
-Continue IV antibiotics
-Local wound care
Subjective Data
Subjective Data
Date of Service: November 07, 2024
Patient states he feels about the same. He currently has no complaints.
Objective Data
-
Vital Signs
Temp Pulse Resp BP Pulse Ox
97.3 F 74 16 127/67 100
11/07/24 07:45 11/07/24 08:25 11/07/24 07:45 11/07/24 08:25 11/07/24 07:45
Intake & Output
11/06/24 11/07/24 11/08/24
06:59 06:59 06:59
Intake Total 1940 / 1940 3610 / 3610
Output Total 1000 / 1000 3400 / 3400 1050 / 1050
Balance 940 / 940 210 / 210 -1050 / -1050
Intake:
Oral fluids 840 / 840 2160 / 2160
IV fluids (Total) 1000 / 1000 1100 / 1100
IV piggybacks 100 / 100 350 / 350
Output:
Urine, Voided 1000 / 1000 1200 / 1200 1050 / 1050
Urostomy output 2200 / 2200
Lab Results
11/07/24 07:32
11/07/24 07:32
Physical Exam
-
General: No Acute Distress and AOx3
Abdomen: Soft, Non Distended and Non Tender
Wound: Other (perineal wound with sloughing and edge of eschar tissue with induration in the left inner thigh around the base of the left buttock up to the anus, scrotal edema, less boggy in sensation than yesterday.)
[2024-11-07] MEDS: FIORICET 1 TAB PO (10:35)
[2024-11-07 11:07] VITALS: BP 120/56; PULSE 70; O2SAT 99
--- NOTE | 2024-11-07 11:21 | PN.CDI ---
CDI
- -
CDI:
Physician Documentation Request
Admit Date: 11/05/24 18:44
Dear Doctor Radha,
11/06 WOCN note states ' Patient admitted with: Sacral PI, unstageable vs DTI, L buttock has stage 2 PI with ring of dark purple on edges.... L ischium with unstageable PI.....'
Physician documentation of the type and location of wounds is required for compliant documentation. Based on the above clinical findings and your assessment, please provide the following in your progress note:
1. Location of the ulcer/wound, including laterality.
2. Type (etiology) of ulcer/wound:
- Diabetic ulcer
- Arterial (ischemic) ulcer
- Traumatic wound
- Venous stasis ulcer
- Pressure (decubitus) ulcer
- Non-healing surgical wound
- Other
- Unable to determine
Use of terms such as suspected, likely, concern for, or probable (associated with a specific diagnosis that is being evaluated, monitored, or treated as if it exists) are acceptable and can be coded in the inpatient setting, when documented at the
time of discharge.
Thank you,
Gin Alberts RN, BSN
CDI Specialist
tiger text
Please use your independent medical judgment in providing your response.
*Source: National Pressure Ulcer Advisory Panel (NPUAP)
--- NOTE | 2024-11-07 11:25 | CM ---
Or on hold today, possible OR tomorrow.
Patient will need hospital bed and air mattress on d/c.
Plan: home with possible VN needs.
--- NOTE | 2024-11-07 12:21 | PTCARENOTE ---
pt aaox3. states having a headache md made aware pain med given as ordered. pt baclofen pump was not charged overnight. pt states he did not receive any medication from his pump since 2am. remote charged and pt now resumed using pump. sacral
groin dressing done. pt inc of small amt stool. ivf running as ordered.
[2024-11-07] MEDS: VANCOCIN 530 MG IV (13:01)
--- NOTE | 2024-11-07 13:20 | W.PN.ID1 ---
Date of Service
Date of Service: November 07, 2024
Today's Communication
Continue antibiotics. See below�
Assessment / Plan
Buttock cellulitis/SSTI
Leukocytosis
Fever
Hyponatremia
Bacteremia (2 of 4 bottles from admission with GPC chains)
Hx paraplegia following T6 AVM surgery
Recommendations:
Blood cultures with Group A strep (Streptococcus pyogenes)
Continue with Zosyn. Add clindamycin x 3 days as a toxin inhibitor.
Discontinue further vancomycin.
Repeat blood cultures pending.
Monitor white count and temperature curve.
Follow clinical exam for any worsening that may suggest deeper infection or need for debridement.
Would repeat CT scan in 3 or 4 days to assess whether any collection has developed.
����������������������������������������������������������
Chief Complaint
-: Other (Perirectal infection)
Subjective / Review of Systems
Patient seen and examined. Reports mild headache today.
Review of Systems: No Fever and No Chills
Vital Signs / Physical Exam
Vital Signs
Vital Signs
Temp Pulse Resp BP Pulse Ox
97.3 F 74 16 127/67 100
11/07/24 07:45 11/07/24 08:25 11/07/24 07:45 11/07/24 08:25 11/07/24 07:45
Physical Exam
Constitutional: Comfortable and Chronically Ill
Eyes: No Conjunctival Hemorrhage and Sclera Anicteric
Cardiovascular: S1/S2; Negative S3/S4
Pulmonary: Clear; Negative Wheezes or Rales
Gastrointestinal: Soft, Non Tender and Non Distended
Skin: Other (Left perirectal area with ongoing erythema and induration. No appreciable fluctuant areas palpated. Patient without sensation in the area.)
Wound: Other (Sacral and left ischial wounds dressed.)
Neurological: Awake and Alert
Psychological: Calm
Objective Data
Lab Data
Lab Results
11/07/24 07:32
11/07/24 07:32
Estimated Creat Clear 113 ml/min 11/07/24 07:32
Lactic Acid Cancelled 11/05/24 18:00
Total Bilirubin 0.5 mg/dl (0.2-1.3) 11/06/24 07:37
AST 40 U/L (17-59) 11/06/24 07:37
ALT 33 U/L (0-50) 11/06/24 07:37
Alkaline Phosphatase 73 U/L (38-126) 11/06/24 07:37
Most recent labs reviewed.
Micro Results:
11/05/24 22:09 Wound Culture - Preliminary
Back Gram Stain - Preliminary
11/06/24 10:13 Blood Culture - Preliminary
Blood/Venous No Growth in 24 hours- Final report to follow
11/06/24 09:29 Blood Culture - Preliminary
Blood/Venous No Growth in 24 hours- Final report to follow
11/05/24 15:22 Blood Culture - Preliminary
Blood/Venous Streptococcus pyogenes
Gram Stain - Preliminary
11/05/24 14:18 Blood Culture - Preliminary
Blood/Venous Streptococcus pyogenes
Gram Stain - Preliminary
11/07/24 08:38 Blood Culture - Pending
Blood/Venous
11/07/24 07:33 Blood Culture - Pending
Blood/Venous
Imaging:
11/05/2024 CT abdomen/pelvis: There is increased density in the subcutaneous tissues of the left buttock concerning for severe cellulitis. No evidence for abscess formation. Diffuse bladder wall thickening is noted, but stable. There is mild fecal
material in the colon. Please see full dictation for additional detail.
Care Review
Plan reviewed with: Physician (Colorectal Surgery)
[2024-11-07] MEDS: CLEOCIN 50 IV ×2 (14:42→21:39)
[2024-11-07 15:42] VITALS: BP 134/67
[2024-11-07 16:31] VITALS: PULSE 84; O2SAT 99
[2024-11-07 20:20] VITALS: BP 138/60
[2024-11-07 23:40] VITALS: BP 124/66
[2024-11-08] MEDS: ZOSYN 50 IV ×4 (05:00→21:39)
[2024-11-08] MEDS: CLEOCIN 50 IV ×3 (05:02→21:25)
--- NOTE | 2024-11-08 07:34 | W.PN.HOSP.TC ---
Addendum entered and electronically signed by Marquis Robles MD 11/08/24 13:00:
Sepsis secondary to gram-positive cocci bacteremia, likely source soft tissue/skin however does have a spinal baclofen pump
-White ocunt improving, afebrile, continue iv atb per
-Continue current IV antibiotics
-Repeat blood cultures ordered
-2D echo, ef 60-65%, mild MR, no RWA
Right sided hydrocele - small on the side of urethral sphincter stimulator
-Outpt uro follow up
Hyponatremia
-resolved
Original Note:
Today's Communication/Plan
-
;/
Assessment / Plan
Assessment / Plan
Assessment/plan
#Sepsis POA secondary to right buttock cellulitis versus ischial tuberosity wound
#Sacral Pressure Injury POA
-CT abdomen pelvis increased density of the subcutaneous tissues of the left buttocks concerning for severe cellulitis, no evidence of abscess formation, mild volume overload of third spacing
-Blood cultures x 2 preliminary Strep Pyogenes
-Follow cultures, repeat BC NGTD
-ID consulted, input appreciated
-Continue with Zosyn. Clindamycin as toxin inhibitor
-echocardiogram 11/06/2024- No significant valvular disease. LVEF 60 to 65%
-Wound care
#Hematochezia secondary to hemorrhoidal bleeding
-External hemorrhoids on rectal exam
-CT abdomen as above
-Monitor H&H
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 Chand 2018 with findings right posterior anal fistula with external opening at the right posterior anal margin and internal opening in the right posterior anal
canal with a moderate amount of muscle involvement.
-Colorectal surgery consulted, input appreciated
-No plans for OR debridement
-Monitor clinically for improvement
#Scrotum erythema and edema
-Scrotum ultrasound 11/06/2024-Small right hydrocele. 3 mm right epididymal head cyst versus spermatocele
-Follow-up with outpatient urology
#Essential hypertension
Continue home lisinopril, metoprolol
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
-Loss of sensation below umbilicus
-Continue home baclofen pump
#Stoma for urinary catheterization
-Patient injects gentamicin every 48 hours through stoma
CODE STATUS full code
DVT prophylaxis�SCDs
Anticipated Discharge: > 48 hours
Subjective/Interval History
-
Date of Service: November 08, 2024
Objective Data
-
Labs:
Laboratory Results
11/08/24
06:00
WBC Pending
Hgb Pending
Hct Pending
Plt Count Pending
Sodium Pending
Potassium Pending
Chloride Pending
Carbon Dioxide Pending
BUN Pending
Creatinine Pending
Glucose Pending
Calcium Pending
Vital Signs:
Vital Signs
Temp Pulse Resp BP Pulse Ox
97.8 F 89 18 124/66 99
11/07/24 23:40 11/07/24 23:40 11/07/24 23:40 11/07/24 23:40 11/08/24 04:37
I&O
11/07/24 11/08/24 11/09/24
06:59 06:59 06:59
Intake Total 3610 / 3610 440 / 440
Output Total 3400 / 3400 1450 / 1450
Balance 210 / 210 -1010 / -1010
Review of Systems
-
All other systems: Reviewed and negative (Except as documented)
Physical Exam
-
General: Well Developed, Well Nourished and No Apparent Distress
HEENT: Normocephalic
Respiratory: Clear to Auscultation; Negative Wheezes or Crackles
Cardiac: Regular Rhythm and S1/S2
GI: Soft, Nontender, Nondistended and Ostomy (Right lower quadrant)
Skin: Other (Wound in his sacral region)
Neuro: Awake, Alert, Oriented and AO x 3
Psych: Calm
[2024-11-08 08:17] VITALS: BP 144/75
[2024-11-08 08:27] LABS: % Basophils 0.2 % (0-2); % Eosinophils 1.1 % (0-6); % Immature Granulocytes 1.2 % (0-0.5); % Lymphocytes 9.9 % (20.5-51.1); % Monocytes 6.3 % (1.7-9.3); % Neutrophils 81.3 % (42.2-75.2); Absolute Eosinophils 0.1 10^3/uL (0-0.7); Absolute Immature Granulocytes 0.1 10^3/uL (0-0.05); Absolute Lymphocytes 0.9 10^3/uL (1.2-3.4); Absolute Monocytes 0.6 10^3/uL (0.1-0.6); Absolute Neutrophils 7.5 10^3/uL (1.4-6.5); Hematocrit 28.2 % (39.0-52.0); Hemoglobin 9.3 g/dL (13.0-18.0); Mean Platelet Volume 9.9 fL (7.4-10.4); Nucleated Red Blood Cells % 0 % (-); Platelet Count 272 10^3/uL (130-400); Red Blood Cell Count 3.44 10^6/uL (4.70-6.10); White Blood Cell Count 9.3 10^3/uL (4.8-10.8)
[2024-11-08 08:59] LABS: Blood Urea Nitrogen 16 mg/dl (9-20); Calcium 7.6 mg/dl (8.4-10.2); Carbon Dioxide 25 mmol/L (22-30); Chloride 107 mmol/L (98-107); Estimated Creatinine Clearance 113 ml/min; Glucose 100 mg/dl (70-99); Potassium 3.8 mmol/L (3.5-5.1); Sodium 139 mmol/L (135-145); eGFR > 60.00
[2024-11-08] MEDS: ZESTRIL 10 MG PO (09:39)
[2024-11-08] MEDS: VITAMIN D3 (cholecalciferol) 25 MCG PO (09:39)
[2024-11-08] MEDS: VITAMIN C 500 MG PO ×2 (09:39→21:25)
[2024-11-08] MEDS: NEURONTIN 300 MG PO ×2 (09:39→21:24)
[2024-11-08] MEDS: LOPRESSOR 50 MG PO ×2 (09:40→21:24)
[2024-11-08] MEDS: SANTYL OINTMENT 1 APPLIC TOPICAL (09:41)
--- NOTE | 2024-11-08 09:45 | VNURNOTE ---
Home Health Liaison met with patient at bedside to discuss [facility] nurse/therapy, visits, schedule and homebound status. Patient is agreeable and understands that visits at home will be 2-3 x per week to assess and teach medical management. [facility]
brochure provided with contact information. Patient is aware that [facility] will contact them for start of care in 1-2 days after discharge from . Hospital bed set up pending clinical notes, Rx. DME co= [facility].
[facility] referral completed in [facility].
--- NOTE | 2024-11-08 09:58 | W.PN.ID1 ---
Date of Service
Date of Service: November 08, 2024
Today's Communication
Continue antibiotics.
Assessment / Plan
Buttock cellulitis/SSTI
Leukocytosis
Fever
Hyponatremia
Bacteremia (2 of 4 bottles from admission with GPC chains)
Hx paraplegia following T6 AVM surgery
Recommendations:
Blood cultures with Group A strep (Streptococcus pyogenes)
Continue with Zosyn. Added clindamycin x 3 days as a toxin inhibitor.
Repeat blood cultures pending.
Monitor white count and temperature curve.
Follow clinical exam for any worsening that may suggest deeper infection or need for debridement.
Would repeat CT scan in 2 or 3 days to assess whether any collection has developed.
Follow left ischial area for any increase in possible fluctuance.
����������������������������������������������������������
Chief Complaint
-: Other (Perirectal infection)
Subjective / Review of Systems
Patient seen and examined. Still notes a feeling of 'pressure' in the pelvic area.
Review of Systems: No Fever and No Chills
Vital Signs / Physical Exam
Vital Signs
Vital Signs
Temp Pulse Resp BP Pulse Ox
98.2 F 100 18 144/75 98
11/08/24 08:17 11/08/24 09:39 11/08/24 08:17 11/08/24 09:39 11/08/24 08:17
Physical Exam
Constitutional: Comfortable and Chronically Ill
Eyes: No Conjunctival Hemorrhage and Sclera Anicteric
Cardiovascular: S1/S2; Negative S3/S4
Pulmonary: Clear; Negative Wheezes or Rales
Gastrointestinal: Soft, Non Tender and Non Distended
Skin: Other (Left perirectal area with ongoing erythema and induration. Possible early fluctuant area in the left ischial area. Patient without sensation in the area.)
Wound: Other (Sacral and left ischial wounds dressed.)
Neurological: Awake and Alert
Psychological: Calm
Objective Data
Lab Data
Lab Results
11/08/24 07:58
11/08/24 07:58
Estimated Creat Clear 113 ml/min 11/08/24 07:58
Lactic Acid Cancelled 11/05/24 18:00
Total Bilirubin 0.5 mg/dl (0.2-1.3) 11/06/24 07:37
AST 40 U/L (17-59) 11/06/24 07:37
ALT 33 U/L (0-50) 11/06/24 07:37
Alkaline Phosphatase 73 U/L (38-126) 11/06/24 07:37
Most recent labs reviewed.
Micro Results:
11/06/24 09:29 Blood Culture - Preliminary
Blood/Venous No Growth in 48 hours- Final report to follow
11/05/24 14:18 Blood Culture - Preliminary
Blood/Venous Streptococcus pyogenes
Gram Stain - Preliminary
11/05/24 15:22 Blood Culture - Preliminary
Blood/Venous Streptococcus pyogenes
Gram Stain - Preliminary
11/07/24 08:38 Blood Culture - Preliminary
Blood/Venous No Growth in 24 hours- Final report to follow
11/07/24 07:33 Blood Culture - Preliminary
Blood/Venous No Growth in 24 hours- Final report to follow
11/05/24 22:09 Wound Culture - Preliminary
Back Gram Stain - Preliminary
11/06/24 10:13 Blood Culture - Preliminary
Blood/Venous No Growth in 24 hours- Final report to follow
Imaging:
11/05/2024 CT abdomen/pelvis: There is increased density in the subcutaneous tissues of the left buttock concerning for severe cellulitis. No evidence for abscess formation. Diffuse bladder wall thickening is noted, but stable. There is mild fecal
material in the colon. Please see full dictation for additional detail.
Care Review
Plan reviewed with: Physician
Total Time Spent with Patient (in minutes): CRS
[2024-11-08] MEDS: METAMUCIL, KONSYL 1 PACKET PO ×3 (10:00→21:24)
--- NOTE | 2024-11-08 10:19 | W.PN.CRS1 ---
Today's Communication / Plan
-
no plans for surgery today
continue abx per ID
wound care
Assessment/Plan
-
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
Significant induration without fluctuance noted to the left buttock spreading into the perineum and scrotum. Significant soft tissue infection present.
Afebrile for 48 hours, WBC 9.3 from 7.0
-Will hold on operating room today given WBC is now 9.3. Patient has remained afebrile. Wound is less boggy upon palpation today.
-No plans for surgery today. Okay for a regular diet. Discussed this with the patient.
-Will make NPO at midnight if requires debridement tomorrow.
-Continue to trend labs and vital signs
-Discussed above plan with infectious disease
-Continue IV antibiotics
-Local wound care
-Will order a hospital bed. Patient is requiring frequent changes in body position and requires positioning of the body in a way not feasible with an ordinary bed.
Subjective Data
Subjective Data
Date of Service: November 08, 2024
Patient states he feels like he is a little bit better today. He currently has no complaints.
Objective Data
-
Vital Signs
Temp Pulse Resp BP Pulse Ox
98.2 F 100 18 144/75 98
11/08/24 08:17 11/08/24 09:39 11/08/24 08:17 11/08/24 09:39 11/08/24 08:17
Intake & Output
11/07/24 11/08/24 11/09/24
06:59 06:59 06:59
Intake Total 3610 / 3610 440 / 440
Output Total 3400 / 3400 1450 / 1450
Balance 210 / 210 -1010 / -1010
Intake:
Oral fluids 2160 / 2160 240 / 240
IV fluids (Total) 1100 / 1100
IV piggybacks 350 / 350 200 / 200
Output:
Urine, Voided 1200 / 1200 1050 / 1050
Urostomy output 2200 / 2200 400 / 400
Other:
Number of unmeasured liquid
stools
Rectum 2
Lab Results
11/08/24 07:58
11/08/24 07:58
Physical Exam
-
General: No Acute Distress and AOx3
Abdomen: Soft, Non Distended and Non Tender
Rectal: Other (perineal wound with sloughing and edge of eschar tissue with induration in the left inner thigh around the base of the left buttock up to the anus, scrotal edema, slightly improved)
Skin: Warm and Dry
--- NOTE | 2024-11-08 11:35 | CM ---
Patient seen bedside.
Per patient no surgery planned for today.
Continues with IV anbx and wound care.
Patient will need a hospital bed on d//c.
Air mattress overlay ordered for patient, which he can take home.
Plan: Home with [facility] when stable, will continue to monitor for needs.
[2024-11-08 15:00] VITALS: BP 150/73
[2024-11-08 20:12] VITALS: BP 166/76
[2024-11-08 23:18] VITALS: BP 133/72
[2024-11-09] VITALS (10 sets, daily range): BP systolic 108–154; BP diastolic 51–83
[2024-11-09] MEDS: ZOSYN 50 IV ×4 (05:00→21:51)
[2024-11-09] MEDS: CLEOCIN 50 IV ×3 (05:09→21:51)
--- NOTE | 2024-11-09 07:30 | W.PN.HOSP.TC ---
Addendum entered and electronically signed by Marquis Robles MD 11/09/24 13:10:
Sepsis secondary to gram-positive cocci bacteremia, likely source soft tissue/skin however does have a spinal baclofen pump
-White ocunt improving, afebrile, continue iv atb per
-Continue current IV antibiotics
-Repeat blood cultures ordered
-2D echo, ef 60-65%, mild MR, no RWA
-Colorectal surgery planning to take to the OR for Debridement, continue NPO
Right sided hydrocele - small on the side of urethral sphincter stimulator
-Outpt uro follow up
Hyponatremia
-resolved
Original Note:
Today's Communication/Plan
-
;/
Assessment / Plan
Assessment / Plan
Assessment/plan
#Sepsis POA secondary to right buttock cellulitis versus ischial tuberosity wound
#Sacral Pressure Injury POA
-CT abdomen pelvis increased density of the subcutaneous tissues of the left buttocks concerning for severe cellulitis, no evidence of abscess formation, mild volume overload of third spacing
-Blood cultures x 2 preliminary Strep Pyogenes
-Follow cultures, repeat BC NGTD
-ID consulted, input appreciated
-Continue with Zosyn. Clindamycin as toxin inhibitor
-echocardiogram 11/06/2024- No significant valvular disease. LVEF 60 to 65%
-Wound care
#Hematochezia secondary to hemorrhoidal bleeding
-External hemorrhoids on rectal exam
-CT abdomen as above
-Monitor H&H
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 Chand 2018 with findings right posterior anal fistula with external opening at the right posterior anal margin and internal opening in the right posterior anal
canal with a moderate amount of muscle involvement.
-Colorectal surgery consulted, input appreciated
-Debridement in the OR today
#Scrotum erythema and edema
-Scrotum ultrasound 11/06/2024-Small right hydrocele. 3 mm right epididymal head cyst versus spermatocele
-Discussed imaging findings with the patient's urologist Dr. Rehan Klein. Per the urologist recommendation, the patient can follow-up as an outpatient.
-Patient asymptomatic, follow-up with outpatient urology
#Essential hypertension
Continue home lisinopril, metoprolol
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
-Loss of sensation below umbilicus
-Continue home baclofen pump
#Stoma for urinary catheterization
-Patient injects gentamicin every 48 hours through stoma
CODE STATUS full code
DVT prophylaxis�SCDs
Anticipated Discharge: > 48 hours
Subjective/Interval History
-
Date of Service: November 09, 2024
Objective Data
-
Labs:
Laboratory Results
11/09/24
07:26
WBC Pending
Hgb Pending
Hct Pending
Plt Count Pending
Sodium Pending
Potassium Pending
Chloride Pending
Carbon Dioxide Pending
BUN Pending
Creatinine Pending
Glucose Pending
Calcium Pending
Vital Signs:
Vital Signs
Temp Pulse Resp BP Pulse Ox
99.1 F 81 18 133/72 97
11/08/24 23:18 11/08/24 23:18 11/08/24 23:18 11/08/24 23:18 11/08/24 23:18
I&O
11/08/24 11/09/24 11/10/24
06:59 06:59 06:59
Intake Total 440 / 440 2990 / 2990
Output Total 1450 / 1450 1825 / 1825
Balance -1010 / -1010 1165 / 1165
Review of Systems
-
All other systems: Reviewed and negative (Except as documented)
Physical Exam
-
General: Well Developed, Well Nourished and No Apparent Distress
HEENT: Normocephalic
Respiratory: Clear to Auscultation; Negative Wheezes or Crackles
Cardiac: Regular Rhythm and S1/S2
GI: Soft, Nontender, Nondistended and Ostomy (Right lower quadrant)
Skin: Other (Wound in his sacral region)
Neuro: Awake, Alert, Oriented and AO x 3
Psych: Calm
[2024-11-09] MEDS: ZOFRAN 4 MG IV (07:31)
[2024-11-09] MEDS: FIORICET 1 TAB PO (07:31)
[2024-11-09 07:53] LABS: % Basophils 0.1 % (0-2); % Eosinophils 1.3 % (0-6); % Immature Granulocytes 1.8 % (0-0.5); % Lymphocytes 17.4 % (20.5-51.1); % Monocytes 7.6 % (1.7-9.3); % Neutrophils 71.8 % (42.2-75.2); Absolute Eosinophils 0.1 10^3/uL (0-0.7); Absolute Immature Granulocytes 0.2 10^3/uL (0-0.05); Absolute Lymphocytes 1.6 10^3/uL (1.2-3.4); Absolute Monocytes 0.7 10^3/uL (0.1-0.6); Absolute Neutrophils 6.7 10^3/uL (1.4-6.5); Hematocrit 30.5 % (39.0-52.0); Hemoglobin 9.5 g/dL (13.0-18.0); Mean Corp Hgb Conc. 31.1 g/dL (33.0-37.0); Mean Corpuscular Hgb 26.2 pg (27.0-31.0); Mean Corpuscular Volume 84.3 fL (80.0-94.0); Mean Platelet Volume 9.2 fL (7.4-10.4); Nucleated Red Blood Cells % 0 % (-); Platelet Count 276 10^3/uL (130-400); Red Blood Cell Count 3.62 10^6/uL (4.70-6.10); Red Cell Dist. Width 13.8 % (11.5-14.5); White Blood Cell Count 9.3 10^3/uL (4.8-10.8)
[2024-11-09 08:22] LABS: Blood Urea Nitrogen 11 mg/dl (9-20); Calcium 7.9 mg/dl (8.4-10.2); Carbon Dioxide 26 mmol/L (22-30); Chloride 106 mmol/L (98-107); Estimated Creatinine Clearance > 125 ml/min; Glucose 87 mg/dl (70-99); Potassium 4.4 mmol/L (3.5-5.1); Sodium 138 mmol/L (135-145); eGFR > 60.00
--- NOTE | 2024-11-09 09:16 | VNURNOTE ---
Addendum entered by Chloe Rosas, DAYA 11/09/24 12:18:
Called [facility]. Liaison confirmed receipt of info for hospital bed. Per Angelic at [facility], they have hospital bed delivery scheduled for 11/10.
Original Note:
Chart reviewed. Hospital bed Rx and clinicals faxed to [facility] [phone]. Awaiting auth. DC date TBD. BERONICA lucero.
--- NOTE | 2024-11-09 09:36 | W.PN.CRS1 ---
Today's Communication / Plan
-
possible debridement today
remain NPO
Assessment/Plan
-
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
Significant induration without fluctuance noted to the left buttock spreading into the perineum and scrotum. Significant soft tissue infection present.
Vitals normal, WBC 9.3 from 9.3
-Possible debridement in the OR today. Remains NPO. To be further determined by Dr. Chand.
-Continue to trend labs and vital signs
-Appreciate infectious disease
-Continue IV antibiotics
-Local wound care
-Hospital bed ordered by for home
Subjective Data
Subjective Data
Date of Service: November 09, 2024
Patient states he feels about the same. He has no complaints currently.
Objective Data
-
Vital Signs
Temp Pulse Resp BP Pulse Ox
97.8 F 83 18 149/63 97
11/09/24 07:35 11/09/24 07:35 11/09/24 07:35 11/09/24 07:35 11/09/24 07:35
Intake & Output
11/08/24 11/09/24 11/10/24
06:59 06:59 06:59
Intake Total 440 / 440 2990 / 2990
Output Total 1450 / 1450 1824
Balance -1010 / -1010 1165 / 1165
Intake:
Oral fluids 240 / 240 2640 / 2640
IV piggybacks 200 / 200 350 / 350
Output:
Urine, Voided 1050 / 1050
Urostomy output 400 / 400 1824
Other:
Number of unmeasured liquid
stools
Rectum 2
Lab Results
11/09/24 07:26
11/09/24 07:26
Physical Exam
-
General: No Acute Distress and AOx3
Abdomen: Soft, Non Distended and Non Tender
Wound: Other (perineal wound with sloughing and edge of eschar tissue with induration in the left inner thigh around the base of the left buttock up to the anus, scrotal edema, slightly improved)
[2024-11-09] MEDS: VITAMIN C PO (09:46)
[2024-11-09] MEDS: METAMUCIL, KONSYL PO ×2 (09:46→17:37)
[2024-11-09 10:28] LABS: INR 1.26; PT 16.3 Sec (11.4-14.6)
[2024-11-09 10:31] LABS: APTT 37.6 Sec (23.4-35.0)
--- NOTE | 2024-11-09 11:27 | PTCARENOTE ---
pt aaox3. states headache on top of head and feeling nauseous. meds given as ordered. po meds held pt going to or today. urostomy bud pink. pt self caths
--- NOTE | 2024-11-09 12:28 | W.PN.ID1 ---
Date of Service
Date of Service: November 09, 2024
Today's Communication
Continue antibiotics. Await tentative OR.
Assessment / Plan
Buttock cellulitis/SSTI
Leukocytosis
Fever
Hyponatremia
Bacteremia (2 of 4 bottles from admission with GPC chains)
Hx paraplegia following T6 AVM surgery
Recommendations:
Blood cultures with Group A strep (Streptococcus pyogenes)
Continue with Zosyn. Added clindamycin (d#2 of 3) as a toxin inhibitor.
Repeat blood cultures no growth x 72 hours.
Monitor white count and temperature curve.
For tentative OR later today for exploration and possible debridement.
����������������������������������������������������������
Chief Complaint
-: Other (Perirectal infection)
Subjective / Review of Systems
Patient seen and examined. Reports chills overnight. No fevers recorded.
Vital Signs / Physical Exam
Vital Signs
Vital Signs
Temp Pulse Resp BP Pulse Ox
97.8 F 83 18 149/63 97
11/09/24 07:35 11/09/24 07:35 11/09/24 07:35 11/09/24 07:35 11/09/24 07:35
Physical Exam
Constitutional: Comfortable and Chronically Ill
Eyes: No Conjunctival Hemorrhage and Sclera Anicteric
Cardiovascular: S1/S2; Negative S3/S4
Pulmonary: Clear; Negative Wheezes or Rales
Gastrointestinal: Soft, Non Tender and Non Distended
Wound: Other (Sacral and left ischial wounds dressed.)
Neurological: Awake and Alert
Psychological: Calm
Objective Data
Lab Data
Lab Results
11/09/24 07:26
11/09/24 07:26
PT 16.3 Sec (11.4-14.6) H 11/09/24 09:54
INR 1.26 11/09/24 09:54
APTT 37.6 Sec (23.4-35.0) H 11/09/24 09:54
Estimated Creat Clear > 125 ml/min 11/09/24 07:26
Lactic Acid Cancelled 11/05/24 18:00
Total Bilirubin 0.5 mg/dl (0.2-1.3) 11/06/24 07:37
AST 40 U/L (17-59) 11/06/24 07:37
ALT 33 U/L (0-50) 11/06/24 07:37
Alkaline Phosphatase 73 U/L (38-126) 11/06/24 07:37
Most recent labs reviewed.
Micro Results:
11/06/24 10:13 Blood Culture - Preliminary
Blood/Venous No Growth in 72 hours- Final report to follow
11/06/24 09:29 Blood Culture - Preliminary
Blood/Venous No Growth in 72 hours- Final report to follow
11/05/24 22:09 Wound Culture - Final
Back S aureus-Methicillin Sensitive
Escherichia coli
Streptococcus pyogenes
Diptheroids
Gram Stain - Final
11/07/24 08:38 Blood Culture - Preliminary
Blood/Venous No Growth in 48 hours- Final report to follow
11/07/24 07:33 Blood Culture - Preliminary
Blood/Venous No Growth in 48 hours- Final report to follow
11/05/24 14:18 Blood Culture - Preliminary
Blood/Venous Streptococcus pyogenes
Gram Stain - Preliminary
11/05/24 15:22 Blood Culture - Preliminary
Blood/Venous Streptococcus pyogenes
Gram Stain - Preliminary
Imaging:
11/05/2024 CT abdomen/pelvis: There is increased density in the subcutaneous tissues of the left buttock concerning for severe cellulitis. No evidence for abscess formation. Diffuse bladder wall thickening is noted, but stable. There is mild fecal
material in the colon. Please see full dictation for additional detail.
--- NOTE | 2024-11-09 13:05 | CM ---
Patient seen bedside.
Per patient he is scheduled for surgery today.
[facility] ordered hospital bed for home for patient.
Wound care provided air mattress overlay for patient.
Plan: home with [facility] when medically stable.
--- NOTE | 2024-11-09 16:49 | W.IMMPOSTOP ---
Addendum entered and electronically signed by Yg Chand MD 11/14/24 18:05:
Of note, this was a sharp excisional sharp debridement of necrotic slough using a 15 blade scalpel. Dimensions of area debrided as described below in findings.
Addendum entered and electronically signed by Yg Chand MD 11/09/24 17:02:
Patient's , Carolee, iris.
Original Note:
Surgical Immed Post Op Note
-
Primary Surgeon: Mode Chand MD
Assisting Surgeon: none
Pre-op Diagnosis: perianal soft tissue infection
Post-op Diagnosis: same
Procedure Performed: debridement with pulse lavage of perianal soft tissue infection
Anesthesia Type: general plus local
Specimen / Cultures: wound cultures
Estimated Blood Loss: 50 cc
Complications: no immediate
Operative Findings: indurated skin and emulsified and necrotic fat in 3 areas (2 contiguous with one another) in left perianal area--1 area 5 by 5 cm; one 7 by 4 cm; one 4 by 4 cm--all 3 cm deep
1 inch Emma used to connect/bridge 2 areas subcutaneously
Packed with Betadine soaked kerlix covered by 4 by 4s, ABDs, and mesh panties.
Will send back to med surg.
[2024-11-09] MEDS: LOPRESSOR PO (17:36)
[2024-11-09] MEDS: NEURONTIN PO (17:36)
[2024-11-09] MEDS: SANTYL OINTMENT TOPICAL (17:36)
[2024-11-09] MEDS: VALTREX PO (17:37)
[2024-11-09] MEDS: ZESTRIL PO (17:37)
[2024-11-09] MEDS: VITAMIN D3 (cholecalciferol) PO (17:37)
[2024-11-09] MEDS: NEURONTIN 300 MG PO (21:08)
[2024-11-09] MEDS: VALTREX 1000 MG PO (21:08)
[2024-11-09] MEDS: LOPRESSOR 50 MG PO (21:08)
[2024-11-09] MEDS: VITAMIN C 500 MG PO (21:08)
[2024-11-09] MEDS: METAMUCIL, KONSYL 1 PACKET PO (21:09)
[2024-11-10 03:23] VITALS: BP 110/57
--- NOTE | 2024-11-10 04:42 | PTCARENOTE ---
Patient had a large- incontinent (soft) BM that caused packing to fall out. Emma intact. Packing replaced with a wet to dry packing, ABD secured with tape.
[2024-11-10] MEDS: ZOSYN 50 IV (05:00)
[2024-11-10] MEDS: CLEOCIN 50 IV (05:17)
[2024-11-10 07:33] VITALS: BP 131/65
--- NOTE | 2024-11-10 07:50 | W.PN.HOSP.TC ---
Addendum entered and electronically signed by Marquis Robles MD 11/10/24 11:50:
Sepsis secondary to gram-positive cocci bacteremia, likely source soft tissue/skin however does have a spinal baclofen pump
-Status post OR with colorectal surgery for debridement with drain placement on 11/09/2024
-Colorectal surgery plans for C-scope on Wednesday and diverting colostomy on 11/13
-White ocunt improving, afebrile, continue iv atb per
-Continue current IV antibiotics
-Repeat blood cultures ordered
-2D echo, ef 60-65%, mild MR, no RWA
Right sided hydrocele - small on the side of urethral sphincter stimulator
-Outpt uro follow up
Hyponatremia
-resolved
Herpes/oral
-Valtrex
Original Note:
Today's Communication/Plan
-
;/
Assessment / Plan
Assessment / Plan
Assessment/plan
#Sepsis POA secondary to right buttock cellulitis versus ischial tuberosity wound
#Sacral Pressure Injury POA
-s/p debridement with pulse lavage of perianal soft tissue infection in the OR 11/10 by colorectal
-Arely-anal wound cultures obtained, pending.
-CT abdomen pelvis increased density of the subcutaneous tissues of the left buttocks concerning for severe cellulitis, no evidence of abscess formation, mild volume overload of third spacing
-Blood cultures x 2 preliminary Strep Pyogenes
-Repeat blood cultures negative till date
-ID following
-Transitioned to Unasyn. s/p Clindamycin as toxin inhibitor (12/11)
-echocardiogram 11/06/2024- No significant valvular disease. LVEF 60 to 65%
-Wound care
-Colorectal surgery following
-For diverting colostomy 11/13
#Scrotum erythema and edema
-Scrotum ultrasound 11/06/2024-Small right hydrocele. 3 mm right epididymal head cyst versus spermatocele
-Discussed imaging findings with the patient's urologist Dr. Rehan Klein. Per the urologist recommendation, the patient can follow-up as an outpatient.
-Patient asymptomatic, follow-up with outpatient urology
#Essential hypertension
Continue home lisinopril, metoprolol
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
-Loss of sensation below umbilicus
-Continue home baclofen pump
#Stoma for urinary catheterization
-Patient injects gentamicin every 48 hours through stoma
#Oral Herpetic Lesion
-Valtrex
CODE STATUS full code
DVT prophylaxis�SCDs
Anticipated Discharge: > 48 hours
Subjective/Interval History
-
Date of Service: November 10, 2024
Objective Data
-
Labs:
Laboratory Results
11/10/24
06:00
WBC Pending
Hgb Pending
Hct Pending
Plt Count Pending
Sodium Pending
Potassium Pending
Chloride Pending
Carbon Dioxide Pending
BUN Pending
Creatinine Pending
Glucose Pending
Calcium Pending
Vital Signs:
Vital Signs
Temp Pulse Resp BP Pulse Ox
97.7 F 77 14 131/65 99
11/10/24 07:33 11/10/24 07:33 11/10/24 07:33 11/10/24 07:33 11/10/24 07:33
I&O
11/09/24 11/10/24 11/11/24
06:59 06:59 06:59
Intake Total 2990 / 2990 2360 / 2360
Output Total 1825 / 1825 2325 / 2325
Balance 1165 / 1165 35 / 35
Review of Systems
-
All other systems: Reviewed and negative (Except as documented)
Physical Exam
-
General: Well Developed, Well Nourished and No Apparent Distress
HEENT: Normocephalic
Respiratory: Clear to Auscultation; Negative Wheezes or Crackles
Cardiac: Regular Rhythm and S1/S2
GI: Soft, Nontender and Nondistended
Skin: Other (Wound in his sacral region)
Neuro: Awake, Alert, Oriented and AO x 3
Psych: Calm
[2024-11-10 08:38] LABS: % Basophils 0.1 % (0-2); % Eosinophils 0.5 % (0-6); % Immature Granulocytes 2.4 % (0-0.5); % Lymphocytes 15.1 % (20.5-51.1); % Monocytes 7.8 % (1.7-9.3); % Neutrophils 74.1 % (42.2-75.2); Absolute Immature Granulocytes 0.2 10^3/uL (0-0.05); Absolute Lymphocytes 1.1 10^3/uL (1.2-3.4); Absolute Monocytes 0.6 10^3/uL (0.1-0.6); Absolute Neutrophils 5.5 10^3/uL (1.4-6.5); Hematocrit 24.2 % (39.0-52.0); Hemoglobin 7.8 g/dL (13.0-18.0); Mean Corp Hgb Conc. 32.2 g/dL (33.0-37.0); Mean Corpuscular Hgb 26.9 pg (27.0-31.0); Mean Corpuscular Volume 83.4 fL (80.0-94.0); Mean Platelet Volume 9.5 fL (7.4-10.4); Nucleated Red Blood Cells % 0 % (-); Platelet Count 266 10^3/uL (130-400); Red Cell Dist. Width 13.8 % (11.5-14.5); White Blood Cell Count 7.4 10^3/uL (4.8-10.8)
[2024-11-10 09:03] LABS: Blood Urea Nitrogen 12 mg/dl (9-20); Calcium 7.6 mg/dl (8.4-10.2); Carbon Dioxide 28 mmol/L (22-30); Chloride 104 mmol/L (98-107); Estimated Creatinine Clearance > 125 ml/min; Glucose 104 mg/dl (70-99); Magnesium 1.8 mg/dl (1.6-2.3); Potassium 4.5 mmol/L (3.5-5.1); Sodium 137 mmol/L (135-145); eGFR > 60.00
[2024-11-10] MEDS: METAMUCIL, KONSYL 1 PACKET PO ×3 (09:07→21:21)
[2024-11-10] MEDS: SANTYL OINTMENT 1 APPLIC TOPICAL (09:07)
[2024-11-10] MEDS: NEURONTIN 300 MG PO ×2 (09:07→19:46)
[2024-11-10] MEDS: VITAMIN D3 (cholecalciferol) 25 MCG PO (09:07)
[2024-11-10] MEDS: VALTREX 1000 MG PO ×2 (09:08→19:48)
[2024-11-10] MEDS: ZESTRIL 10 MG PO (09:08)
[2024-11-10] MEDS: VITAMIN C 500 MG PO ×2 (09:08→19:47)
[2024-11-10] MEDS: LOPRESSOR 50 MG PO ×2 (09:09→19:47)
--- NOTE | 2024-11-10 10:11 | CM ---
Addendum entered by Doris Hays 11/10/24 10:57:
Patient for OR Wednesday.
Original Note:
S/p surgery yesterday for debridement.
Continue wound care and IV anbx.
per [facility], cesia devi need new script and md note for hospital bad, bed will not be delivered until Wednesday.
[facility] following for home care needs.
Watch for additional needs.
Plan: home with [facility] when stable, will need new script for hospital bed.
--- NOTE | 2024-11-10 10:46 | W.PN.ID1 ---
Date of Service
Date of Service: November 10, 2024
Today's Communication
Narrow Zosyn to Unasyn
Assessment / Plan
Buttock cellulitis/SSTI
Group A strep Bacteremia (2 of 4 bottles)
Leukocytosis resolved
Fever resolved
Hyponatremia
Hx paraplegia following T6 AVM surgery
Recommendations:
Blood cultures with Group A strep (Streptococcus pyogenes)
Repeat blood cultures no growth x 72 hours.
Perianal wound swab, GAS, MSSA, E.coli, dipth
11/09/24 s/p OR I+D, 3 areas of necrotic fat noted
OR cx pending.
s/p 3d clindamycin as a toxin inhibitor ->DC
Narrow Zosyn to Unasyn.
For diverting colostomy next week.
����������������������������������������������������������
Chief Complaint
-: Other (Perirectal infection)
Subjective / Review of Systems
No specific complaints today.
Vital Signs / Physical Exam
Vital Signs
Vital Signs
Temp Pulse Resp BP Pulse Ox
97.7 F 77 14 131/65 99
11/10/24 07:33 11/10/24 09:09 11/10/24 07:33 11/10/24 09:09 11/10/24 07:33
Physical Exam
Constitutional: No Acute Distress and Comfortable
Eyes: No Conjunctival Hemorrhage and Sclera Anicteric
Cardiovascular: S1/S2; Negative S3/S4
Pulmonary: Clear and Rales
Gastrointestinal: Soft, Non Tender and Non Distended
Neurological: AO x 3
Objective Data
Lab Data
Lab Results
11/10/24 08:29
11/10/24 08:29
PT 16.3 Sec (11.4-14.6) H 11/09/24 09:54
INR 1.26 11/09/24 09:54
APTT 37.6 Sec (23.4-35.0) H 11/09/24 09:54
Estimated Creat Clear > 125 ml/min 11/10/24 08:29
Lactic Acid Cancelled 11/05/24 18:00
Total Bilirubin 0.5 mg/dl (0.2-1.3) 11/06/24 07:37
AST 40 U/L (17-59) 11/06/24 07:37
ALT 33 U/L (0-50) 11/06/24 07:37
Alkaline Phosphatase 73 U/L (38-126) 11/06/24 07:37
Most recent labs reviewed.
Micro Results:
11/06/24 10:13 Blood Culture - Preliminary
Blood/Venous No Growth in 4 days- Final report to follow
11/06/24 09:29 Blood Culture - Preliminary
Blood/Venous No Growth in 4 days- Final report to follow
11/07/24 08:38 Blood Culture - Preliminary
Blood/Venous No Growth in 72 hours- Final report to follow
11/07/24 07:33 Blood Culture - Preliminary
Blood/Venous No Growth in 72 hours- Final report to follow
11/09/24 16:04 Wound Culture - Pending
Arely-anal Gram Stain - Preliminary
11/09/24 16:04 Anaerobic Culture - Pending
Arely-anal
11/05/24 22:09 Wound Culture - Final
Back S aureus-Methicillin Sensitive
Escherichia coli
Streptococcus pyogenes
Diptheroids
Gram Stain - Final
11/05/24 14:18 Blood Culture - Preliminary
Blood/Venous Streptococcus pyogenes
Gram Stain - Preliminary
11/05/24 15:22 Blood Culture - Preliminary
Blood/Venous Streptococcus pyogenes
Gram Stain - Preliminary
Imaging:
11/05/2024 CT abdomen/pelvis: There is increased density in the subcutaneous tissues of the left buttock concerning for severe cellulitis. No evidence for abscess formation. Diffuse bladder wall thickening is noted, but stable. There is mild fecal
material in the colon. Please see full dictation for additional detail.
[2024-11-10] MEDS: ZOSYN IV (10:50)
--- NOTE | 2024-11-10 10:56 | W.PN.CRS1 ---
Today's Communication / Plan
-
Local wound care
Possible colostomy creation on 11/13
Assessment/Plan
-
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
Significant induration without fluctuance noted to the left buttock spreading into the perineum and scrotum. Significant soft tissue infection present.
POD#1 debridement with pulse lavage of perianal soft tissue infection
Vitals normal, WBC 7.4, hgb 7.8 (9.5)
-OR is tentatively scheduled for Wednesday, November 13 for a colostomy creation and possible debridement with Dr. Chand.
-Will need to be n.p.o. at midnight on 11/12
-Wound care for stoma marking
-Continue to trend labs and vital signs
-Appreciate infectious disease
-Continue IV antibiotics
-Local wound care
-Hospital bed ordered by for home
Subjective Data
Procedure
11/09/2024- debridement with pulse lavage of perianal soft tissue infection
Subjective Data
Date of Service: November 10, 2024
Patient states he has no complaints. He feels about the same.
Objective Data
-
Vital Signs
Temp Pulse Resp BP Pulse Ox
97.7 F 77 14 131/65 99
11/10/24 07:33 11/10/24 09:09 11/10/24 07:33 11/10/24 09:09 11/10/24 07:33
Intake & Output
11/09/24 11/10/24 11/11/24
06:59 06:59 06:59
Intake Total 2990 / 2990 2360 / 2360
Output Total 1825 / 1825 2325 / 2325
Balance 1165 / 1165 35 / 35
Intake:
Oral fluids 2640 / 2640 2160 / 2160
IV piggybacks 350 / 350 200 / 200
Output:
Urostomy output 1824 / 1824
Lab Results
11/10/24 08:29
11/10/24 08:29
Physical Exam
-
General: No Acute Distress and AOx3
Abdomen: Soft, Non Distended and Non Tender
Wound: Other (Indurated skin in the left perineal area. There are 3 wounds. All covered with liquid stool. Stool removed with 4 x 4. Brandenburg drain in place.)
[2024-11-10 11:09] VITALS: BP 135/50
[2024-11-10] MEDS: UNASYN IV ×2 (11:23→17:00)
--- NOTE | 2024-11-10 14:00 | WOUNDNOTE ---
[facility] RN Note: Patient stoma marked in L side per SAQIB Gonzales's request. Stoma marked on LUQ over the rectus avoiding skin creases. Stoma marked in lying and high Beaulieu's position. Unable to stoma zoila in LLQ d/t Baclofen pump. Patient
instructed surgeon makes the final decision on stoma placement. Updated SAQIB Gonzales re: stoma zoila including picture notifying PA unable to stoma zoila LLQ d/t Baclofen pump. Patient is an a [employer] air bed and is wearing Tru[employer]ue Lite boots.
[2024-11-10 15:50] VITALS: BP 95/66
[2024-11-10 23:00] VITALS: BP 131/59
[2024-11-11] MEDS: UNASYN IV ×5 (00:50→23:44)
[2024-11-11 07:39] LABS: % Basophils 0.2 % (0-2); % Eosinophils 2.2 % (0-6); % Immature Granulocytes 2.7 % (0-0.5); % Lymphocytes 19.7 % (20.5-51.1); % Monocytes 7.7 % (1.7-9.3); % Neutrophils 67.5 % (42.2-75.2); Absolute Eosinophils 0.1 10^3/uL (0-0.7); Absolute Immature Granulocytes 0.2 10^3/uL (0-0.05); Absolute Lymphocytes 1.2 10^3/uL (1.2-3.4); Absolute Monocytes 0.5 10^3/uL (0.1-0.6); Absolute Neutrophils 3.9 10^3/uL (1.4-6.5); Hematocrit 25.9 % (39.0-52.0); Mean Corp Hgb Conc. 30.9 g/dL (33.0-37.0); Mean Corpuscular Hgb 26.1 pg (27.0-31.0); Mean Corpuscular Volume 84.6 fL (80.0-94.0); Mean Platelet Volume 9.2 fL (7.4-10.4); Nucleated Red Blood Cells % 0 % (-); Platelet Count 274 10^3/uL (130-400); Red Blood Cell Count 3.06 10^6/uL (4.70-6.10); Red Cell Dist. Width 13.8 % (11.5-14.5); White Blood Cell Count 5.8 10^3/uL (4.8-10.8)
[2024-11-11 07:43] VITALS: BP 149/70
[2024-11-11 07:59] LABS: Blood Urea Nitrogen 9 mg/dl (9-20); Calcium 7.8 mg/dl (8.4-10.2); Carbon Dioxide 29 mmol/L (22-30); Chloride 107 mmol/L (98-107); Estimated Creatinine Clearance > 125 ml/min; Glucose 87 mg/dl (70-99); Potassium 4.4 mmol/L (3.5-5.1); Sodium 141 mmol/L (135-145); eGFR > 60.00
[2024-11-11] MEDS: ZESTRIL 10 MG PO (08:40)
[2024-11-11] MEDS: NEURONTIN 300 MG PO ×2 (08:40→20:45)
[2024-11-11] MEDS: METAMUCIL, KONSYL 1 PACKET PO ×3 (08:40→21:59)
[2024-11-11] MEDS: VITAMIN C 500 MG PO ×2 (08:40→20:45)
[2024-11-11] MEDS: LOPRESSOR 50 MG PO ×2 (08:40→20:45)
[2024-11-11] MEDS: VALTREX 1000 MG PO ×2 (08:40→20:44)
[2024-11-11] MEDS: VITAMIN D3 (cholecalciferol) 25 MCG PO (08:41)
[2024-11-11] MEDS: SANTYL OINTMENT 1 APPLIC TOPICAL (11:24)
--- NOTE | 2024-11-11 12:32 | W.PN.HOSP.TC ---
Today's Communication/Plan
-
Assessment / Plan
Assessment / Plan
nad
scleral anicteric
ctabl
rrr
soft, nt,nd
Sepsis secondary to gram-positive cocci bacteremia, likely source soft tissue/skin however does have a spinal baclofen pump
-Status post OR with colorectal surgery for debridement with drain placement on 11/09/2024
-Colorectal surgery plans for C-scope on Wednesday and diverting colostomy on 11/13
-White ocunt improving, afebrile, continue iv atb per
-Continue current IV antibiotics
-Repeat blood cultures ordered
-2D echo, ef 60-65%, mild MR, no RWA
Right sided hydrocele - small on the side of urethral sphincter stimulator
-Outpt uro follow up
Hyponatremia
-resolved
Herpes/oral
-Valtrex
Anticipated Discharge: > 48 hours
Subjective/Interval History
-
Date of Service: November 11, 2024
seen and examined
no new complaints
no acute overnight events
Objective Data
-
Labs:
Laboratory Results
11/11/24
07:18
WBC 5.8
Hgb 8.0 L
Hct 25.9 L
Plt Count 274
Sodium 141
Potassium 4.4
Chloride 107
Carbon Dioxide 29
BUN 9
Creatinine 0.7
Glucose 87
Calcium 7.8 L
Vital Signs:
Vital Signs
Temp Pulse Resp BP Pulse Ox
97.9 F 71 14 149/70 97
11/11/24 07:43 11/11/24 07:43 11/11/24 07:43 11/11/24 07:43 11/11/24 07:43
I&O
11/10/24 11/11/24 11/12/24
06:59 06:59 06:59
Intake Total 2360 / 2360 3480 / 3480
Output Total 2325 / 2325 5450 / 5467
Balance -1969 /
[2024-11-11 15:33] VITALS: BP 140/61
--- NOTE | 2024-11-11 16:45 | W.PN.CRS1 ---
Addendum entered and electronically signed by Tucker Hall MD 11/11/24 17:27:
I saw and examined the patient.
The [employer] G[employer]IL[employer] DEVELOPER's note was reviewed and I agree with the note.
Comment:
No issues overnight. Pain controlled. Did have some sweats/chills, but no fevers.
AFVSS; perineal wounds with fibrinous material, no purulence; andreea stool contamination which was cleaned and packing changed; bridging Emma in place
WBC 5.8 from 7.4; Hb stable, CR 0.7
� Okay for regular diet
� Continue antibiotics; appreciate infectious disease
� Wound care; continue packing changes daily and as needed for stool contamination
� Scheduled for colostomy with repeat debridement for Wednesday; if patient develops worsening leukocytosis or signs of worsening infection, may need repeat debridement sooner
� Appreciate hospitalist
Original Note:
Today's Communication / Plan
-
Local wound care
Assessment/Plan
-
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
Significant induration without fluctuance noted to the left buttock spreading into the perineum and scrotum. Significant soft tissue infection present.
POD#2 debridement with pulse lavage of perianal soft tissue infection
AFVSS
Stooling into wound is inhibiting healing
-OR is tentatively scheduled for November 13 for a colostomy creation and possible debridement with Dr. Chand.
-Will need to be n.p.o. at midnight on 11/12
-Wound care/ostomy team following
-Continue to trend labs and vital signs
-Appreciate infectious disease
-Continue IV antibiotics
-Local wound care
-Hospital bed ordered by for home
Subjective Data
Procedure
11/09/2024- debridement with pulse lavage of perianal soft tissue infection
Subjective Data
Date of Service: November 11, 2024
Patient seen and examined at bedside with Dr. Hall. Does note some burning sensation to the perineum but has minimal sensation in that area. Large Bm just prior to exam
Objective Data
-
Vital Signs
Temp Pulse Resp BP Pulse Ox
98.0 F 85 14 140/61 98
11/11/24 15:33 11/11/24 15:33 11/11/24 15:33 11/11/24 15:33 11/11/24 15:33
Intake & Output
11/10/24 11/11/24 11/12/24
06:59 06:59 06:59
Intake Total 2360 / 2360 3480 / 3480
Output Total 2325 / 2325 5450 / 5450
Balance 35 / 35 -1970 / -1970
Intake:
Oral fluids 2160 / 2160 2880 / 2880
IV piggybacks 200 / 200 600 / 600
Output:
Urine, Calixto 1500 / 1500
Urine, Voided 3950 / 3950
Urostomy output 2325 / 2325
Other:
Number of approximated MODERATE 3
amounts of urine
Lab Results
11/11/24 07:18
11/11/24 07:18
Physical Exam
-
General: No Acute Distress and AOx3
Abdomen: Soft, Non Distended and Non Tender
Wound: Other (Indurated skin in the left perineal area. There are 3 wounds slough noted to edges. All covered with liquid stool. Stool removed with 4 x 4. Emma drain in place.)
[2024-11-11] MEDS: LOVENOX 40 MG SC (17:00)
[2024-11-11 20:50] VITALS: BP 149/69
[2024-11-11 23:44] VITALS: BP 132/69
[2024-11-12] MEDS: UNASYN IV ×4 (05:34→23:57)
[2024-11-12 07:43] VITALS: BP 136/56
[2024-11-12] MEDS: ZESTRIL 10 MG PO (08:25)
[2024-11-12] MEDS: VALTREX 1000 MG PO ×2 (08:25→20:34)
[2024-11-12] MEDS: LOPRESSOR 50 MG PO ×2 (08:25→20:34)
[2024-11-12] MEDS: NEURONTIN 300 MG PO ×2 (08:26→20:34)
[2024-11-12] MEDS: VITAMIN C 500 MG PO ×2 (08:26→20:34)
[2024-11-12] MEDS: METAMUCIL, KONSYL 1 PACKET PO ×2 (08:26→17:04)
[2024-11-12] MEDS: SANTYL OINTMENT 1 APPLIC TOPICAL (08:26)
[2024-11-12] MEDS: VITAMIN D3 (cholecalciferol) 25 MCG PO (08:26)
[2024-11-12] MEDS: FIORICET 1 TAB PO (08:30)
--- NOTE | 2024-11-12 11:58 | W.PN.CRS1 ---
Addendum entered and electronically signed by Tucker Hall MD 11/12/24 14:15:
I saw and examined the patient.
The [employer] T[employer] OPERATOR's note was reviewed and I agree with the note.
Comment:
No issues overnight.
Packing change by nursing today.
Plan for OR tomorrow for colostomy creation and debridement; clears for dinner tonight with bottle of mag citrate tonight, n.p.o. at midnight.
Type and screen and coags for a.m.
Original Note:
Today's Communication / Plan
-
Wound care
Assessment/Plan
-
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
Significant induration without fluctuance noted to the left buttock spreading into the perineum and scrotum. Significant soft tissue infection present.
POD#3 debridement with pulse lavage of perianal soft tissue infection
AFVSS
Stooling into wound is inhibiting healing
-OR is tentatively scheduled for tomorrow for a colostomy creation and possible debridement with Dr. Chand.
-n.p.o. at midnight on 11/12. May need bowel prep tonight, will discuss with primary surgeon
-Wound care/ostomy team following
-Continue to trend labs and vital signs
-Appreciate infectious disease
-Continue IV antibiotics
-Local wound care daily and prn
-Hospital bed ordered by for home
Subjective Data
Procedure
11/09/2024- debridement with pulse lavage of perianal soft tissue infection
Subjective Data
Date of Service: November 12, 2024
Patient seen and examined at bedside with Dr. Hall. Denies n/v. Tolerating diet. Large BM's yesterday, not yet today. Burning sensation in pelvis.
Objective Data
-
Vital Signs
Temp Pulse Resp BP Pulse Ox
98.4 F 69 12 136/56 98
11/12/24 07:43 11/12/24 07:43 11/12/24 07:43 11/12/24 07:43 11/12/24 07:43
Intake & Output
11/11/24 11/12/24 11/13/24
06:59 06:59 06:59
Intake Total 3480 / 3480 2160 / 2160 480 / 480
Output Total 5450 / 5450 6750 / 6750
Balance -1970 / -1970 -4590 / -4590 480 / 480
Intake:
Oral fluids 2880 / 2880 1920 / 1920 480 / 480
IV piggybacks 600 / 600 240 / 240
Output:
Urine, Calixto 1500 / 1500
Urine, Voided 3950 / 3950 3250 / 3250
Suprapubic output 3500 / 3500
Other:
Number of approximated MODERATE 3
amounts of urine
Lab Results
11/11/24 07:18
11/11/24 07:18
Physical Exam
-
General: No Acute Distress and AOx3
Abdomen: Soft, Non Distended and Non Tender
Wound: Dressing in Place
--- NOTE | 2024-11-12 12:48 | W.PN.HOSP.TC ---
Today's Communication/Plan
-
Assessment / Plan
Assessment / Plan
nad
scleral anicteric
ctabl
rrr
soft, nt,nd
Sepsis secondary to gram-positive cocci bacteremia, likely source soft tissue/skin however does have a spinal baclofen pump
-Status post OR with colorectal surgery for debridement with drain placement on 11/09/2024
-Colorectal surgery plans for C-scope on Wednesday and colostomy creation +- debridement on 11/13
-White ocunt improving, afebrile, continue iv atb per
-Continue current IV antibiotics
-Repeat blood cultures ordered
-2D echo, ef 60-65%, mild MR, no RWA
Right sided hydrocele - small on the side of urethral sphincter stimulator
-Outpt uro follow up
Hyponatremia
-resolved
Herpes/oral
-Valtrex
Headaches/Migraines
-Motrin 800mg PO
-Fiorcet
Anticipated Discharge: > 48 hours
Subjective/Interval History
-
Date of Service: November 12, 2024
seen and examiend
no new complaints
no acute overognit events
headache
Objective Data
-
Vital Signs:
Vital Signs
Temp Pulse Resp BP Pulse Ox
98.4 F 69 12 136/56 98
11/12/24 07:43 11/12/24 07:43 11/12/24 07:43 11/12/24 07:43 11/12/24 07:43
I&O
11/11/24 11/12/24 11/13/24
06:59 06:59 06:59
Intake Total 3480 / 3480 2160 / 2160 480 / 480
Output Total 5450 / 5450 6750 / 6750
Balance -1970 / -1970 -4590 / -4590 480 / 480
[2024-11-12] MEDS: MOTRIN 800 MG PO (13:57)
[2024-11-12 15:54] VITALS: BP 122/64
[2024-11-12] MEDS: LOVENOX 40 MG SC (17:04)
[2024-11-12] MEDS: CITROMA 300 ML PO (17:05)
[2024-11-12 20:15] VITALS: BP 149/69
[2024-11-12] MEDS: METAMUCIL, KONSYL PO (20:34)
[2024-11-12 23:07] VITALS: BP 127/64
[2024-11-13] VITALS (13 sets, daily range): BP systolic 125–165; BP diastolic 56–88
[2024-11-13] MEDS: UNASYN IV ×4 (05:31→23:24)
--- NOTE | 2024-11-13 07:25 | W.PN.HOSP.TC ---
Today's Communication/Plan
-
;/
Assessment / Plan
Assessment / Plan
Assessment/plan
#Sepsis POA secondary to right buttock cellulitis versus ischial tuberosity wound
#Sacral Pressure Injury POA
-s/p debridement with pulse lavage of perianal soft tissue infection in the OR 11/10 by colorectal
-Arely-anal wound cultures positive Streptococcus pyogenes
-Repeat blood cultures negative till date
-ID following
-Transitioned to Unasyn. Continue
-echocardiogram 11/06/2024- No significant valvular disease. LVEF 60 to 65%
-Wound care
-Colorectal surgery following
-For diverting colostomy today
#Scrotum erythema and edema
-Scrotum ultrasound 11/06/2024-Small right hydrocele. 3 mm right epididymal head cyst versus spermatocele
-Discussed imaging findings with the patient's urologist Dr. Rehan Klein. Per the urologist recommendation, the patient can follow-up as an outpatient.
-Patient asymptomatic, follow-up with outpatient urology
#Essential hypertension
Continue home lisinopril, metoprolol
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
-Loss of sensation below umbilicus
-Continue home baclofen pump
#Stoma for urinary catheterization
-Patient injects gentamicin every 48 hours through stoma
#Oral Herpetic Lesion
-Valtrex
CODE STATUS full code
DVT prophylaxis�SCDs
Anticipated Discharge: > 48 hours
Subjective/Interval History
-
Date of Service: November 13, 2024
Objective Data
-
Labs:
Laboratory Results
11/13/24
06:00
WBC Pending
Hgb Pending
Hct Pending
Plt Count Pending
PT Pending
INR Pending
APTT Pending
Sodium Pending
Potassium Pending
Chloride Pending
Carbon Dioxide Pending
BUN Pending
Creatinine Pending
Glucose Pending
Calcium Pending
Vital Signs:
Vital Signs
Temp Pulse Resp BP Pulse Ox
98.4 F 64 16 127/64 96
11/12/24 23:07 11/12/24 23:07 11/12/24 23:07 11/12/24 23:07 11/12/24 23:07
I&O
11/12/24 11/13/24 11/14/24
06:59 06:59 06:59
Intake Total 2160 / 2160 3190 / 3190
Output Total 6750 / 6750 6550 / 6550
Balance -4590 / -4590 -3360 / -3360
Review of Systems
-
All other systems: Reviewed and negative (Except as documented)
Physical Exam
-
General: Well Developed, Well Nourished and No Apparent Distress
HEENT: Normocephalic
Respiratory: Clear to Auscultation; Negative Wheezes or Crackles
Cardiac: Regular Rhythm and S1/S2
GI: Soft, Nontender and Nondistended
Skin: Other (Wound in his sacral region)
Neuro: Awake, Alert, Oriented and AO x 3
Psych: Calm
--- NOTE | 2024-11-13 08:28 | W.PN.UPDATE ---
Update Note
Progress Note Update
I saw and evaluated the patient. I reviewed the resident�s note and agree with findings and plan as documented in the resident�s note.
No new complaints.
Gen: NAD, AAOx3.
Eyes: EOMI, PERRLA, no scleral icterus.
Neck: supple.
CV: RRR, +S1/S2, no m/r/g.
Resp: CTAB, no rales, wheezes, or rhonchi.
Abd: +BS, soft, NT, ND
Skin: No rashes.
Neuro: CN 2-12 intact
Psych: Normal mood and affect.
11/05/24 15:22 Blood/Venous Blood Culture - Final
Streptococcus pyogenes
11/05/24 15:22 Blood/Venous Gram Stain - Final
11/05/24 14:18 Blood/Venous Blood Culture - Final
Streptococcus pyogenes
11/05/24 14:18 Blood/Venous Gram Stain - Final
11/09/24 16:04 Arely-anal Anaerobic Culture - Preliminary
Culture pending. Anaerobic cultures are examined after 3
days incubation. Additional information to follow.
11/07/24 08:38 Blood/Venous Blood Culture - Final
No Growth - Final Report
11/07/24 07:33 Blood/Venous Blood Culture - Final
No Growth - Final Report
11/06/24 10:13 Blood/Venous Blood Culture - Final
No Growth - Final Report
11/06/24 09:29 Blood/Venous Blood Culture - Final
No Growth - Final Report
11/09/24 16:04 Arely-anal Wound Culture - Preliminary
Streptococcus pyogenes
11/09/24 16:04 Arely-anal Gram Stain - Preliminary
11/05/24 22:09 Back Wound Culture - Final
S aureus-Methicillin Sensitive
Escherichia coli
Streptococcus pyogenes
Diptheroids
11/05/24 22:09 Back Gram Stain - Final
CT A/P: Increased density to the subcutaneous tissues of the left buttocks concerning for severe cellulitis. No evidence of abscess formation. Findings suggesting mild volume overload of third spacing. Diffuse bladder wall thickening. Stable. This
can be seen with cystitis or bladder outlet obstruction. Mild fecal material in the colon.
Echo: EF 60-65%, no RWMA. Normal diastolic function. Dilated RV with normal systolic function. No significant valvular disease. PASP 31mmHg.
Sepsis/bacteremia secondary to gram-positive cocci bacteremia:
-likely source soft tissue/skin however does have a spinal baclofen pump
-s/p OR for debridement with drain placement on 11/09/24
-for colostomy today
-leukocytosis resolved
-cont Unasyn as per ID
Other problems:
Right sided hydrocele: small and on the side of urethral sphincter stimulator, ouptpt Uro f/u
Hyponatremia, resolved
Oral HSV Herpes: Cont Valtrex
Migraine headaches: Cont fioricet PRN
FULL/Lovenox
--- NOTE | 2024-11-13 09:00 | W.PN.ID1 ---
Date of Service
Date of Service: November 13, 2024
Today's Communication
Continue Unasyn
Assessment / Plan
Buttock cellulitis/SSTI
Group A strep Bacteremia (2 of 4 bottles)
Leukocytosis resolved
Fever resolved
Hyponatremia
Hx paraplegia following T6 AVM surgery
Recommendations:
Blood cultures with Group A strep (Streptococcus pyogenes)
Repeat blood cultures no growth x 72 hours.
Perianal wound swab, GAS, MSSA, E.coli, dipth
11/09/24 s/p OR I+D, 3 areas of necrotic fat noted
OR cx Group A strep
s/p 3d clindamycin as a toxin inhibitor ->DC
Continue Unasyn for now.
At time of dc, will transition to Augmentin.
For diverting colostomy today.
����������������������������������������������������������
Chief Complaint
-: Other (Perirectal infection)
Subjective / Review of Systems
Feels thirsty. NPO for surgery.
Vital Signs / Physical Exam
Vital Signs
Vital Signs
Temp Pulse Resp BP Pulse Ox
97.3 F 77 18 125/56 95
11/13/24 07:53 11/13/24 07:53 11/13/24 07:53 11/13/24 07:53 11/13/24 07:53
Physical Exam
Constitutional: No Acute Distress and Comfortable
Cardiovascular: Regular Rate and S1/S2
Pulmonary: Clear
Gastrointestinal: Soft, Non Tender and Non Distended
Objective Data
Lab Data
PT 16.3 Sec (11.4-14.6) H 11/09/24 09:54
INR 1.26 11/09/24 09:54
APTT 37.6 Sec (23.4-35.0) H 11/09/24 09:54
Estimated Creat Clear > 125 ml/min 11/11/24 07:18
Lactic Acid Cancelled 11/05/24 18:00
Total Bilirubin 0.5 mg/dl (0.2-1.3) 11/06/24 07:37
AST 40 U/L (17-59) 11/06/24 07:37
ALT 33 U/L (0-50) 11/06/24 07:37
Alkaline Phosphatase 73 U/L (38-126) 11/06/24 07:37
Most recent labs reviewed.
Micro Results:
11/05/24 15:22 Blood Culture - Final
Blood/Venous Streptococcus pyogenes
Gram Stain - Final
11/05/24 14:18 Blood Culture - Final
Blood/Venous Streptococcus pyogenes
Gram Stain - Final
11/09/24 16:04 Anaerobic Culture - Preliminary
Arely-anal Culture pending. Anaerobic cultures are examined after 3
days incubation. Additional information to follow.
11/07/24 08:38 Blood Culture - Final
Blood/Venous No Growth - Final Report
11/07/24 07:33 Blood Culture - Final
Blood/Venous No Growth - Final Report
11/06/24 10:13 Blood Culture - Final
Blood/Venous No Growth - Final Report
11/06/24 09:29 Blood Culture - Final
Blood/Venous No Growth - Final Report
11/09/24 16:04 Wound Culture - Preliminary
Arely-anal Streptococcus pyogenes
Gram Stain - Preliminary
11/05/24 22:09 Wound Culture - Final
Back S aureus-Methicillin Sensitive
Escherichia coli
Streptococcus pyogenes
Diptheroids
Gram Stain - Final
Imaging:
11/05/2024 CT abdomen/pelvis: There is increased density in the subcutaneous tissues of the left buttock concerning for severe cellulitis. No evidence for abscess formation. Diffuse bladder wall thickening is noted, but stable. There is mild fecal
material in the colon. Please see full dictation for additional detail.
[2024-11-13 09:18] LABS: INR 1.21; PT 15.6 Sec (11.4-14.6)
[2024-11-13 09:19] LABS: APTT 31.8 Sec (23.4-35.0); Hematocrit 26.3 % (39.0-52.0); Hemoglobin 8.4 g/dL (13.0-18.0); Mean Corp Hgb Conc. 31.9 g/dL (33.0-37.0); Mean Corpuscular Hgb 27.1 pg (27.0-31.0); Mean Corpuscular Volume 84.8 fL (80.0-94.0); Mean Platelet Volume 9.3 fL (7.4-10.4); Platelet Count 353 10^3/uL (130-400); Red Cell Dist. Width 13.7 % (11.5-14.5); White Blood Cell Count 8.3 10^3/uL (4.8-10.8)
[2024-11-13] MEDS: NEURONTIN 300 MG PO ×2 (09:19→20:25)
[2024-11-13] MEDS: VALTREX 1000 MG PO ×2 (09:19→20:25)
[2024-11-13] MEDS: VITAMIN D3 (cholecalciferol) 25 MCG PO (09:20)
[2024-11-13] MEDS: VITAMIN C 500 MG PO ×2 (09:20→20:25)
[2024-11-13 10:13] LABS: Blood Urea Nitrogen 6 mg/dl (9-20); Carbon Dioxide 30 mmol/L (22-30); Chloride 106 mmol/L (98-107); Estimated Creatinine Clearance > 125 ml/min; Glucose 81 mg/dl (70-99); Sodium 140 mmol/L (135-145); eGFR > 60.00
[2024-11-13] MEDS: LOPRESSOR PO (10:17)
[2024-11-13] MEDS: ZESTRIL PO (10:17)
[2024-11-13] MEDS: SANTYL OINTMENT TOPICAL (10:17)
[2024-11-13] MEDS: METAMUCIL, KONSYL PO ×3 (10:18→21:55)
--- NOTE | 2024-11-13 13:26 | CM ---
Plan OR today.
CM will continue for d/c needs.
--- NOTE | 2024-11-13 18:36 | W.IMMPOSTOP ---
Addendum entered and electronically signed by Yg Chand MD 11/13/24 18:45:
Will put on clears now.
Patient's , Carolee, updated via phone conversation.
Original Note:
Surgical Immed Post Op Note
-
Primary Surgeon: Mode Chand MD
Assisting Surgeon: LADAN Strange
Pre-op Diagnosis: 1) left buttock soft tissue infection 2) paraplegia
Post-op Diagnosis: same
Procedure Performed: 1) robotic transverse (Cedeno-type end loop) colostomy creation 2) debridement and pulse lavage left buttock wounds
Anesthesia Type: general plus local
Specimen / Cultures: none
Estimated Blood Loss: 50 cc
Complications: no immediate
Operative Findings: indurated skin and emulsified and necrotic fat in 3 areas (2 contiguous with one another) in left perianal area--1 area 5 by 5 cm; one 7 by 4 cm; one 4 by 4 cm--all 3 cm deep
Emma drain removed.
Packed with Betadine soaked kerlix covered by 4 by 4s, ABDs, and mesh panties.
Will send back to med surg.
[2024-11-13] MEDS: DILAUDID 0.25 MG IV ×2 (19:18→19:39)
[2024-11-13] MEDS: LOVENOX 40 MG SC (19:27)
[2024-11-13] MEDS: LOPRESSOR 50 MG PO (20:25)
--- NOTE | 2024-11-13 21:00 | PTCARENOTE ---
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 informed Dr. Chand - miracle'd ordered. Prn and schedule pain medicine
administered w/ +effect.
pt tolerating clear liquids w/o issue.
[2024-11-13] MEDS: TORADOL 10 MG IV (21:10)
[2024-11-13] MEDS: DILAUDID 0.5 MG IV (21:56)
[2024-11-13] MEDS: TYLENOL 650 MG PO (23:24)
[2024-11-14] VITALS (8 sets, daily range): BP systolic 105–151; BP diastolic 43–68; PULSE 76; O2SAT 97
[2024-11-14] MEDS: TORADOL 10 MG IV ×4 (03:23→20:16)
[2024-11-14] MEDS: TYLENOL 650 MG PO ×5 (03:24→23:07)
[2024-11-14] MEDS: DILAUDID 0.5 MG IV ×3 (04:44→23:06)
[2024-11-14] MEDS: UNASYN IV ×4 (05:09→23:06)
--- NOTE | 2024-11-14 06:03 | PTCARENOTE ---
pt colostomy but out 200ml brown soft/liquid stool.
[2024-11-14 06:42] LABS: % Basophils 0.1 % (0-2); % Eosinophils 0.3 % (0-6); % Immature Granulocytes 0.8 % (0-0.5); % Lymphocytes 12.3 % (20.5-51.1); % Monocytes 5.8 % (1.7-9.3); % Neutrophils 80.7 % (42.2-75.2); Absolute Immature Granulocytes 0.1 10^3/uL (0-0.05); Absolute Monocytes 0.5 10^3/uL (0.1-0.6); Absolute Neutrophils 6.3 10^3/uL (1.4-6.5); Hematocrit 24.3 % (39.0-52.0); Hemoglobin 7.6 g/dL (13.0-18.0); Mean Corp Hgb Conc. 31.3 g/dL (33.0-37.0); Mean Corpuscular Hgb 26.5 pg (27.0-31.0); Mean Corpuscular Volume 84.7 fL (80.0-94.0); Mean Platelet Volume 9.3 fL (7.4-10.4); Nucleated Red Blood Cells % 0 % (-); Platelet Count 320 10^3/uL (130-400); Red Blood Cell Count 2.87 10^6/uL (4.70-6.10); Red Cell Dist. Width 13.8 % (11.5-14.5); White Blood Cell Count 7.7 10^3/uL (4.8-10.8)
[2024-11-14 07:01] LABS: Blood Urea Nitrogen 9 mg/dl (9-20); Calcium 7.2 mg/dl (8.4-10.2); Carbon Dioxide 28 mmol/L (22-30); Chloride 102 mmol/L (98-107); Estimated Creatinine Clearance > 125 ml/min; Glucose 107 mg/dl (70-99); Magnesium 2.1 mg/dl (1.6-2.3); Potassium 4.1 mmol/L (3.5-5.1); Sodium 136 mmol/L (135-145); eGFR > 60.00
--- NOTE | 2024-11-14 07:10 | W.PN.HOSP.TC ---
Today's Communication/Plan
-
;/
Assessment / Plan
Assessment / Plan
Assessment/plan
#Sepsis POA secondary to right buttock cellulitis versus ischial tuberosity wound
#Sacral Pressure Injury POA
-s/p debridement with pulse lavage of perianal soft tissue infection in the OR 11/10 by colorectal
-s/p colostomy creation and debridement andlavage left buttock wounds 2/3 by colorectal
-Arely-anal wound cultures positive Streptococcus pyogenes
-Repeat blood cultures negative till date
-ID following
-On Unasyn
-echocardiogram 11/06/2024- No significant valvular disease. LVEF 60 to 65%
-Wound care
-Colorectal surgery following
#Scrotum erythema and edema
-Scrotum ultrasound 11/06/2024-Small right hydrocele. 3 mm right epididymal head cyst versus spermatocele
-Discussed imaging findings with the patient's urologist Dr. Rehan Klein. Per the urologist recommendation, the patient can follow-up as an outpatient.
-Patient asymptomatic, follow-up with outpatient urology
#Essential hypertension
Continue home lisinopril, metoprolol
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
-Loss of sensation below umbilicus
-Continue home baclofen pump
#Stoma for urinary catheterization
-Patient injects gentamicin every 48 hours through stoma
#Oral Herpetic Lesion
-Valtrex
CODE STATUS full code
DVT prophylaxis�SCDs
Anticipated Discharge: 24 - 48 hours
Subjective/Interval History
-
Date of Service: November 14, 2024
Objective Data
-
Labs:
Laboratory Results
11/14/24
06:14
WBC 7.7
Hgb 7.6 L
Hct 24.3 L
Plt Count 320
Sodium 136
Potassium 4.1
Chloride 102
Carbon Dioxide 28
BUN 9
Creatinine 0.7
Glucose 107 H
Calcium 7.2 L
Vital Signs:
Vital Signs
Temp Pulse Resp BP Pulse Ox
98.2 F 67 18 134/59 96
11/14/24 03:00 11/14/24 03:00 11/14/24 03:00 11/14/24 03:00 11/14/24 03:00
I&O
11/13/24 11/14/24 11/15/24
06:59 06:59 06:59
Intake Total 3190 / 3190 3170 / 3170
Output Total 6550 / 6550 1200 / 1200
Balance -3360 / -3360 1969 / 1969
Review of Systems
-
All other systems: Reviewed and negative (Except as documented)
Physical Exam
-
General: Well Developed and Well Nourished
Respiratory: Clear to Auscultation
Cardiac: Regular Rhythm and S1/S2
GI: Soft, Nontender, Nondistended and Ostomy
Musculoskeletal: No Edema
Neuro: Awake, Alert, Oriented and AO x 3
Psych: Calm
--- NOTE | 2024-11-14 08:04 | W.PN.UPDATE ---
Update Note
Progress Note Update
I saw and evaluated the patient. I reviewed the resident�s note and agree with findings and plan as documented in the resident�s note.
Patient reports abdomen is sore.
Gen: NAD, AAOx3.
Eyes: EOMI, PERRLA, no scleral icterus.
Neck: supple.
CV: remains RRR, +S1/S2, no m/r/g.
Resp: CTAB, no rales, wheezes, or rhonchi.
Abd: +BS, soft, NT to light palpation, ND
Skin: No rashes.
Neuro: CN 2-12 intact. paraplegic.
Psych: Normal mood and affect.
11/09/24 16:04 Arely-anal Anaerobic Culture - Preliminary
Culture pending. Anaerobic cultures are examined after 3
days incubation. Additional information to follow.
11/05/24 15:22 Blood/Venous Blood Culture - Final
Streptococcus pyogenes
11/05/24 15:22 Blood/Venous Gram Stain - Final
11/05/24 14:18 Blood/Venous Blood Culture - Final
Streptococcus pyogenes
11/05/24 14:18 Blood/Venous Gram Stain - Final
11/07/24 08:38 Blood/Venous Blood Culture - Final
No Growth - Final Report
11/07/24 07:33 Blood/Venous Blood Culture - Final
No Growth - Final Report
11/06/24 10:13 Blood/Venous Blood Culture - Final
No Growth - Final Report
11/06/24 09:29 Blood/Venous Blood Culture - Final
No Growth - Final Report
11/09/24 16:04 Arely-anal Wound Culture - Preliminary
Streptococcus pyogenes
11/09/24 16:04 Arely-anal Gram Stain - Preliminary
11/05/24 22:09 Back Wound Culture - Final
S aureus-Methicillin Sensitive
Escherichia coli
Streptococcus pyogenes
Diptheroids
11/05/24 22:09 Back Gram Stain - Final
CT A/P: Increased density to the subcutaneous tissues of the left buttocks concerning for severe cellulitis. No evidence of abscess formation. Findings suggesting mild volume overload of third spacing. Diffuse bladder wall thickening. Stable. This
can be seen with cystitis or bladder outlet obstruction. Mild fecal material in the colon.
Echo: EF 60-65%, no RWMA. Normal diastolic function. Dilated RV with normal systolic function. No significant valvular disease. PASP 31mmHg.
Sepsis/bacteremia secondary to gram-positive cocci bacteremia:
-likely source soft tissue/skin however does have a spinal baclofen pump
-s/p OR for debridement with drain placement on 11/09/24
-s/p OR for robotic transverse (Cedeno-type end loop) colostomy creation and debridement and pulse lavage left buttock wounds on 11/13/24
-leukocytosis resolved
-cont Unasyn as per ID
Other problems:
Paraplegia
Right sided hydrocele: small and on the side of urethral sphincter stimulator, ouptpt Uro f/u
Hyponatremia, resolved
Oral HSV Herpes: Cont Valtrex
Migraine headaches: Cont fioricet PRN
FULL/Lovenox
--- NOTE | 2024-11-14 09:36 | PN.CDI ---
CDI
- -
CDI:
Physician Documentation Request
Admit Date: 11/05/24 18:44
Dear Doctor Jagruti,
11/09 Patient underwent 'Debridement with pulse lavage of perianal soft tissue infection.'
The OR report states 'These areas were debrided sharply with a 15 blade scalpel.'
Could provide clarification regarding the debridement.
Please specify the type of debridement performed:
1. Excisional Debridement - defined as removal by excision of devitalized tissue, necrosis or slough
2. Non-excisional debridement - defined as removal of devitalized tissue, necrosis or slough by such methods as irrigation, brushing, scrubbing or washing.
If the debridement was excisional, please also include:
1. What was excised (necrotic tissue, gangrenous tissue, slough etc.)
2. Depth of debridement (skin, subcutaneous tissue, fascia, muscle, bone etc)
For excisional or non-excisional, please also include:
1. Depth of debridement (skin, subcutaneous tissue, fascia, muscle, bone etc)
2. Size and appearance of the wound (L, W, D, color of wound, drainage)
Use of terms such as suspected, likely, concern for, or probable (associated with a specific diagnosis that is being evaluated, monitored, or treated as if it exists) are acceptable and can be coded in the inpatient setting, when documented at the
time of discharge.
Thank you,
Gin Alberts RN, BSN
CDI Specialist
tiger text
Please use your independent medical judgment in providing your response.
[2024-11-14] MEDS: VITAMIN C 500 MG PO ×2 (10:39→20:16)
[2024-11-14] MEDS: LOPRESSOR 50 MG PO ×2 (10:39→20:16)
[2024-11-14] MEDS: VITAMIN D3 (cholecalciferol) 25 MCG PO (10:39)
[2024-11-14] MEDS: NEURONTIN 300 MG PO ×2 (10:40→20:16)
[2024-11-14] MEDS: SANTYL OINTMENT TOPICAL (10:40)
[2024-11-14] MEDS: ZESTRIL 10 MG PO (10:40)
[2024-11-14] MEDS: METAMUCIL, KONSYL 1 PACKET PO (10:43)
--- NOTE | 2024-11-14 10:51 | W.PN.CRS1 ---
Today's Communication / Plan
-
Full liquids
Wound care
Assessment/Plan
-
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
Significant induration without fluctuance noted to the left buttock spreading into the perineum and scrotum. Significant soft tissue infection present.
POD#4 debridement with pulse lavage of perianal soft tissue infection
POD#1 robotic transverse (Cedeno-type end loop) colostomy creation/debridement and pulse lavage left buttock wounds
AFVSS
-Doing well postop. Tolerating clears. Advance to full liquids.
-Wound care: Wet-to-dry twice daily
-Wound care/ostomy team following for colostomy and perianal wounds
-Continue to trend labs and vital signs
-Appreciate infectious disease
-Continue IV antibiotics
-Local wound care daily and prn
-Out of bed as tolerated
Subjective Data
Procedure
11/09/2024- debridement with pulse lavage of perianal soft tissue infection
11/13/2024- 1) robotic transverse (Cedeno-type end loop) colostomy creation 2) debridement and pulse lavage left buttock wounds
Subjective Data
Date of Service: November 14, 2024
Patient states he has no complaints. He already has stool in his colostomy bag. He denies nausea or vomiting. He is not in any pain.
Objective Data
-
Vital Signs
Temp Pulse Resp BP Pulse Ox
98.1 F 68 16 110/47 96
11/14/24 07:40 11/14/24 07:40 11/14/24 07:40 11/14/24 07:40 11/14/24 07:40
Intake & Output
11/13/24 11/14/2425
06:59 06:59 06:59
Intake Total 3190 / 3190 3170 / 3170
Output Total 6550 / 6550 1200 / 1200
Balance -3360 / -3360 1969 / 1969
Intake:
Oral fluids 2880 / 2880 1880 / 1880
IV fluids (Total) 70 / 70 1050 / 1050
Normosal 200 / 200
IV piggybacks 240 / 240 240 / 240
Output:
Liquid stool amount 200 / 200
Colostomy 200 / 200
Urine, Calixto 200 / 200
Urine, Voided 1150 / 1150 800 / 800
Suprapubic output 5400 / 5400
Lab Results
11/14/24 06:14
11/14/24 06:14
Physical Exam
-
General: No Acute Distress and AOx3
Abdomen: Soft, Non Distended, Non Tender and Other (colostomy warm and pink with some output in bag)
Skin: Warm and Dry
[2024-11-14] MEDS: TYLENOL PO (12:09)
--- NOTE | 2024-11-14 12:31 | WOUNDNOTE ---
L 2ND TOE
--- NOTE | 2024-11-14 12:33 | WOUNDNOTE ---
L ISCHIUM AND L UPPER BUTTOCKS
--- NOTE | 2024-11-14 12:35 | WOUNDNOTE ---
SIMON RN NOTE: Followed up today post I&D of L buttock/ischium and medial groin, dressings changed using saline wet to dry, secured with mesh underwear. Sacral dressing changed using silicone foam. Periwound with mild fungal rash. Dressings changed on
L 2nd toe and heels, using TruVue lite boots. Removed Jhony stockings, patient requested a break from them, nurse Nirmala aware. Colostomy stoma pink and functioning for gas and brown stool. Gave patient folder and reviewed emptying, changing appliance
and A&P of GI tract. Answered all questions, will order supplies and change appliance toward end of week. Asked patient if family would like to be present at pouch change, he states probably not since works. Patient said he used to use a pouch
for his continent urostomy, self cath's daily. Agreed to enrollment in [employer] start program, will enter in [employer] portal. Supplies ordered for bedside. Updated nurse Silvestre and will follow.
--- NOTE | 2024-11-14 13:01 | WOUNDNOTE ---
SIMON RN NOTE ADDENDUM: Confirmed with SAQIB Grajeda and Dr. Chand can continue Santyl to L upper buttock and sacrum daily and L ischium and medial groin saline wet to dry bid. Fungal powder also ordered for periwound near sacrum. Updated care
plan.
--- NOTE | 2024-11-14 13:55 | W.PN.ID1 ---
Date of Service
Date of Service: November 14, 2024
Today's Communication
Continue Unasyn (d 10 abx) for now.
At time of dc, transition to Augmentin 875mg po bid through 11/24/24.
Assessment / Plan
Buttock cellulitis/SSTI
Group A strep Bacteremia (2 of 4 bottles)
Leukocytosis resolved
Fever resolved
Hyponatremia
Hx paraplegia following T6 AVM surgery
Recommendations:
Blood cultures with Group A strep (Streptococcus pyogenes)
Repeat blood cultures neg
Perianal wound swab, GAS, MSSA, E.coli, dipth
11/09/24 s/p OR I+D, 3 areas of necrotic fat noted
OR cx Group A strep
11/13/24 s/p diverting colocstomy
s/p 3d clindamycin as a toxin inhibitor ->DC
Continue Unasyn (d 10 abx) for now.
At time of dc, transition to Augmentin 875mg po bid through 11/24/24.
.
����������������������������������������������������������
Chief Complaint
-: Other (Perirectal infection)
Vital Signs / Physical Exam
Vital Signs
Vital Signs
Temp Pulse Resp BP Pulse Ox
98.8 F 94 17 131/68 97
11/14/24 11:30 11/14/24 11:30 11/14/24 11:30 11/14/24 11:30 11/14/24 11:30
Physical Exam
Constitutional: No Acute Distress and Comfortable
Cardiovascular: Regular Rate and S1/S2
Pulmonary: Clear
Gastrointestinal: Soft, Non Tender, Non Distended and Normal Bowel Sounds
Neurological: AO x 3
Objective Data
Lab Data
Lab Results
11/14/24 06:14
11/14/24 06:14
PT 15.6 Sec (11.4-14.6) H 11/13/24 08:36
INR 1.21 11/13/24 08:36
APTT 31.8 Sec (23.4-35.0) 11/13/24 08:36
Estimated Creat Clear > 125 ml/min 11/14/24 06:14
Lactic Acid Cancelled 11/05/24 18:00
Total Bilirubin 0.5 mg/dl (0.2-1.3) 11/06/24 07:37
AST 40 U/L (17-59) 11/06/24 07:37
ALT 33 U/L (0-50) 11/06/24 07:37
Alkaline Phosphatase 73 U/L (38-126) 11/06/24 07:37
Most recent labs reviewed.
Micro Results:
11/09/24 16:04 Wound Culture - Final
Arely-anal Streptococcus pyogenes
Gram Stain - Final
11/09/24 16:04 Anaerobic Culture - Final
Arely-anal NO ANAEROBES ISOLATED
11/05/24 15:22 Blood Culture - Final
Blood/Venous Streptococcus pyogenes
Gram Stain - Final
11/05/24 14:18 Blood Culture - Final
Blood/Venous Streptococcus pyogenes
Gram Stain - Final
11/07/24 08:38 Blood Culture - Final
Blood/Venous No Growth - Final Report
11/07/24 07:33 Blood Culture - Final
Blood/Venous No Growth - Final Report
11/06/24 10:13 Blood Culture - Final
Blood/Venous No Growth - Final Report
11/06/24 09:29 Blood Culture - Final
Blood/Venous No Growth - Final Report
11/05/24 22:09 Wound Culture - Final
Back S aureus-Methicillin Sensitive
Escherichia coli
Streptococcus pyogenes
Diptheroids
Gram Stain - Final
Imaging:
11/05/2024 CT abdomen/pelvis: There is increased density in the subcutaneous tissues of the left buttock concerning for severe cellulitis. No evidence for abscess formation. Diffuse bladder wall thickening is noted, but stable. There is mild fecal
material in the colon. Please see full dictation for additional detail.
--- NOTE | 2024-11-14 14:57 | CM ---
CM reviewed pt with Dr Morgan- KELSIE tomorrow
Pt POD#1 new colostomy
Post op PT/OT erna requested and pending
Bedside meeting with pt to discuss dc planning
Pt plans to dc home with [facility]
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
He noted hospital bed was delivered yesterday by [facility] to his home
Air mattress overlay and pump previously provided to pt by [facility] and will need to take home on dc
[facility] providing ostomy teaching, he will need supplies on dc
Update to [facility] who has accepted pt for service
Pt notes his spouse will transport home
VM left for [facility] to confirm bed delivery at home
Discharge Disposition- anticipate home with [facility] and new ostomy, air mattress overlay and hospital bed
[2024-11-14] MEDS: METAMUCIL, KONSYL PO ×2 (15:19→20:17)
[2024-11-14] MEDS: LOVENOX 40 MG SC (17:51)
[2024-11-14] MEDS: DESENEX/MITRAZOL/ZEASORB 1 APPLIC TOPICAL (20:17)
[2024-11-14] MEDS: MYLICON 80 MG PO (22:27)
[2024-11-15] MEDS: TORADOL 10 MG IV ×2 (03:51→09:07)
[2024-11-15] MEDS: TYLENOL PO ×2 (04:51→16:37)
[2024-11-15] MEDS: UNASYN IV ×2 (05:24→11:24)
[2024-11-15] MEDS: DILAUDID 0.5 MG IV (05:45)
[2024-11-15 07:00] VITALS: BP 123/62
[2024-11-15 07:10] LABS: % Basophils 0.2 % (0-2); % Eosinophils 1.9 % (0-6); % Immature Granulocytes 0.7 % (0-0.5); % Lymphocytes 20.7 % (20.5-51.1); % Monocytes 7.6 % (1.7-9.3); % Neutrophils 68.9 % (42.2-75.2); Absolute Eosinophils 0.1 10^3/uL (0-0.7); Absolute Lymphocytes 1.1 10^3/uL (1.2-3.4); Absolute Monocytes 0.4 10^3/uL (0.1-0.6); Absolute Neutrophils 3.7 10^3/uL (1.4-6.5); Hematocrit 22.5 % (39.0-52.0); Hemoglobin 7.1 g/dL (13.0-18.0); Mean Corp Hgb Conc. 31.6 g/dL (33.0-37.0); Mean Corpuscular Hgb 26.7 pg (27.0-31.0); Mean Corpuscular Volume 84.6 fL (80.0-94.0); Mean Platelet Volume 8.9 fL (7.4-10.4); Nucleated Red Blood Cells % 0 % (-); Platelet Count 257 10^3/uL (130-400); Red Blood Cell Count 2.66 10^6/uL (4.70-6.10); White Blood Cell Count 5.4 10^3/uL (4.8-10.8)
--- NOTE | 2024-11-15 07:18 | W.PN.HOSP.TC ---
Today's Communication/Plan
-
;/
Assessment / Plan
Assessment / Plan
Assessment/plan
#Sepsis POA secondary to right buttock cellulitis versus ischial tuberosity wound
#Sacral Pressure Injury POA
-s/p debridement with pulse lavage of perianal soft tissue infection in the OR 11/10 by colorectal
-s/p colostomy creation and debridement andlavage left buttock wounds 3 by colorectal
-Arely-anal wound cultures positive Streptococcus pyogenes
-Repeat blood cultures negative till date
-ID following
-Continue Unasyn, at time of discharge transition to Augmentin 875 mg p.o. twice daily through 11/24/2024
-echocardiogram 11/06/2024- No significant valvular disease. LVEF 60 to 65%
-Wound care
-Colorectal surgery following
#Scrotum erythema and edema
-Scrotum ultrasound 11/06/2024-Small right hydrocele. 3 mm right epididymal head cyst versus spermatocele
-Discussed imaging findings with the patient's urologist Dr. Rehan Klein. Per the urologist recommendation, the patient can follow-up as an outpatient.
-Patient asymptomatic, follow-up with outpatient urology
#Essential hypertension
Continue home lisinopril, metoprolol
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
-Loss of sensation below umbilicus
-Continue home baclofen pump
#Stoma for urinary catheterization
-Patient injects gentamicin every 48 hours through stoma
#Oral Herpetic Lesion
-Completed Valtrex
CODE STATUS full code
DVT prophylaxis�SCDs
Anticipated Discharge: Within 24 hours
Subjective/Interval History
-
Date of Service: November 15, 2024
Objective Data
-
Labs:
Laboratory Results
11/15/24
06:52
WBC 5.4
Hgb 7.1 L
Hct 22.5 L
Plt Count 257
Sodium Pending
Potassium Pending
Chloride Pending
Carbon Dioxide Pending
BUN Pending
Creatinine Pending
Glucose Pending
Calcium Pending
Vital Signs:
Vital Signs
Temp Pulse Resp BP Pulse Ox
98.1 F 58 18 105/43 96
11/14/24 23:12 11/14/24 23:12 11/14/24 23:12 11/14/24 23:12 11/14/24 23:55
I&O
11/14/24 11/15/24 11/16/24
06:59 06:59 06:59
Intake Total 3170 / 3170 4620 / 4620
Output Total 1200 / 1200 3200 / 3200
Balance 1969 / 1969 1420 / 1420
Review of Systems
-
All other systems: Reviewed and negative (Except as documented)
Physical Exam
-
General: Well Developed and Well Nourished
Respiratory: Clear to Auscultation
Cardiac: Regular Rhythm and S1/S2
GI: Soft, Nontender, Nondistended and Ostomy
Musculoskeletal: No Edema
Neuro: Awake, Alert, Oriented and AO x 3
Psych: Calm
[2024-11-15 07:31] LABS: Blood Urea Nitrogen 8 mg/dl (9-20); Calcium 7.3 mg/dl (8.4-10.2); Carbon Dioxide 31 mmol/L (22-30); Chloride 99 mmol/L (98-107); Estimated Creatinine Clearance > 125 ml/min; Glucose 85 mg/dl (70-99); Potassium 4.2 mmol/L (3.5-5.1); Sodium 135 mmol/L (135-145); eGFR > 60.00
--- NOTE | 2024-11-15 08:14 | W.PN.UPDATE ---
Addendum entered and electronically signed by Richie Morgan MD 11/15/24 14:53:
Total time spent on d/c = 32 min. This included today's physical exam, progress note, review of laboratory and diagnostic data, preparation of discharge documents and prescriptions, and discussions about the pt's hospital course and discharge plan
with the patient and other emergency medicine medical director involved in the patient's care.
Addendum entered and electronically signed by Richie Morgan MD 11/15/24 13:30:
Total time spent on d/c = 33 min. This included today's physical exam, progress note, review of laboratory and diagnostic data, preparation of discharge documents and prescriptions, and discussions about the pt's hospital course and discharge plan
with the patient and other emergency medicine medical director involved in the patient's care.
Original Note:
Update Note
Progress Note Update
I saw and evaluated the patient. I reviewed the resident�s note and agree with findings and plan as documented in the resident�s note.
Patient reports abdomen is sore for OR.
Gen: NAD, AAOx3.
Eyes: EOMI, PERRLA, no scleral icterus.
Neck: supple.
CV: Continues to remain RRR, +S1/S2, no m/r/g.
Resp: CTAB anteriorly, no rales, wheezes, or rhonchi.
Abd: Remains +BS, soft, NT to light palpation, ND
Skin: No rashes.
Neuro: CN 2-12 intact. paraplegic.
Psych: Normal mood and affect.
11/09/24 16:04 Arely-anal Anaerobic Culture - Preliminary
Culture pending. Anaerobic cultures are examined after 3
days incubation. Additional information to follow.
11/05/24 15:22 Blood/Venous Blood Culture - Final
Streptococcus pyogenes
11/05/24 15:22 Blood/Venous Gram Stain - Final
11/05/24 14:18 Blood/Venous Blood Culture - Final
Streptococcus pyogenes
11/05/24 14:18 Blood/Venous Gram Stain - Final
11/07/24 08:38 Blood/Venous Blood Culture - Final
No Growth - Final Report
11/07/24 07:33 Blood/Venous Blood Culture - Final
No Growth - Final Report
11/06/24 10:13 Blood/Venous Blood Culture - Final
No Growth - Final Report
11/06/24 09:29 Blood/Venous Blood Culture - Final
No Growth - Final Report
11/09/24 16:04 Arely-anal Wound Culture - Preliminary
Streptococcus pyogenes
11/09/24 16:04 Arely-anal Gram Stain - Preliminary
11/05/24 22:09 Back Wound Culture - Final
S aureus-Methicillin Sensitive
Escherichia coli
Streptococcus pyogenes
Diptheroids
11/05/24 22:09 Back Gram Stain - Final
CT A/P: Increased density to the subcutaneous tissues of the left buttocks concerning for severe cellulitis. No evidence of abscess formation. Findings suggesting mild volume overload of third spacing. Diffuse bladder wall thickening. Stable. This
can be seen with cystitis or bladder outlet obstruction. Mild fecal material in the colon.
Echo: EF 60-65%, no RWMA. Normal diastolic function. Dilated RV with normal systolic function. No significant valvular disease. PASP 31mmHg.
Sepsis/bacteremia secondary to gram-positive cocci bacteremia:
-likely source soft tissue/skin however does have a spinal baclofen pump
-s/p OR for debridement with drain placement on 11/09/24
-s/p OR for robotic transverse (Cedeno-type end loop) colostomy creation and debridement and pulse lavage left buttock wounds on 11/13/24
-leukocytosis resolved
-cont Unasyn while hospitalized, transition to Augmentin through 11/24/24 on d/c as per ID
Other problems:
Acute blood loss anemia due to surgery: repeat Hb at noon
Paraplegia
Right sided hydrocele: small and on the side of urethral sphincter stimulator, ouptpt Uro f/u
Hyponatremia, resolved
Oral HSV Herpes: Cont Valtrex
Migraine headaches: Cont Fioricet PRN
FULL/Lovenox
Discharge later today if hemoglobin stable patient tolerates a low residue diet. Case management aware
[2024-11-15] MEDS: TYLENOL 650 MG PO ×2 (09:06→13:09)
[2024-11-15] MEDS: VITAMIN D3 (cholecalciferol) 25 MCG PO (09:06)
[2024-11-15] MEDS: NEURONTIN 300 MG PO (09:06)
[2024-11-15] MEDS: SANTYL OINTMENT 1 APPLIC TOPICAL (09:06)
[2024-11-15] MEDS: LOPRESSOR 50 MG PO (09:07)
[2024-11-15] MEDS: VITAMIN C 500 MG PO (09:07)
[2024-11-15] MEDS: METAMUCIL, KONSYL PO ×2 (09:07→16:37)
[2024-11-15] MEDS: ZESTRIL 10 MG PO (09:07)
[2024-11-15] MEDS: DESENEX/MITRAZOL/ZEASORB 1 APPLIC TOPICAL (09:09)
--- NOTE | 2024-11-15 09:12 | W.PN.CRS1 ---
Today's Communication / Plan
-
low residue
possible d/c later today
Assessment/Plan
-
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
Significant induration without fluctuance noted to the left buttock spreading into the perineum and scrotum. Significant soft tissue infection present.
POD#5 debridement with pulse lavage of perianal soft tissue infection
POD#2 robotic transverse (Cedeno-type end loop) colostomy creation/debridement and pulse lavage left buttock wounds
AFVSS
-Doing well postop. Tolerating clears. Advance to low residue.
-Wound care: Wet-to-dry twice daily
-Wound care/ostomy team following for colostomy and perianal wounds
-Continue to trend labs and vital signs
-Appreciate infectious disease
-Continue IV antibiotics
-Local wound care daily and prn
-Out of bed as tolerated
-Likely d/c later today. Continue with local wound care. Follow up with Dr. Chand in 2 weeks.
Subjective Data
Procedure
11/09/2024- debridement with pulse lavage of perianal soft tissue infection
11/13/2024- 1) robotic transverse (Cedeno-type end loop) colostomy creation 2) debridement and pulse lavage left buttock wounds
Subjective Data
Date of Service: November 15, 2024
Patient states he feels well. He denies nausea or vomiting. He is having colostomy function. He feels a little bloated. His abdominal area is 'sore' but he has no pain.
Objective Data
-
Vital Signs
Temp Pulse Resp BP Pulse Ox
98.2 F 63 18 123/62 98
11/15/24 07:00 11/15/24 07:00 11/15/24 07:00 11/15/24 07:00 11/15/24 07:00
Intake & Output
11/14/24 11/15/24 11/16/24
06:59 06:59 06:59
Intake Total 3170 / 3170 4620 / 4620
Output Total 1200 / 1200 3200 / 3200
Balance 1970 / 1970 1420 / 1420
Intake:
Oral fluids 1880 / 1880 4140 / 4140
IV fluids (Total) 1050 / 1050
Normosal 200 / 200
IV piggybacks 240 / 240 480 / 480
Output:
Liquid stool amount 200 / 200 250 / 250
Colostomy 200 / 200 250 / 250
Urine, Calixto 200 / 200
Urine, Voided 800 / 800 300 / 300
Suprapubic output 2650 / 2650
Lab Results
11/15/24 06:52
Physical Exam
-
General: No Acute Distress and AOx3
Abdomen: Soft, Non Distended, Non Tender and Other (colostomy warm and pink with function)
Wound: Dressing in Place
[2024-11-15 12:29] LABS: Hematocrit 23.6 % (39.0-52.0); Hemoglobin 7.5 g/dL (13.0-18.0)
--- NOTE | 2024-11-15 13:23 | CM ---
Patient seen bedside.
Patient for anticipated d/c today.
Colostomy supplies in room, air overlay and pump to go home with patient.
Spouse will transport.
IMM reviewed.
Plan: home with [facility]
--- NOTE | 2024-11-15 13:37 | W.DCSUMMARY ---
Discharge Summary
Discharge Data
Date of Admission: 11/05/24
Date of Discharge: 11/15/24
-
Pending Results: No
Hospital Course
Brief hospital course; This is a 54-year-old male with past medical history of T6 spinal AVM status post surgery with residual paraplegia, right lower quadrant stoma for urine catheterization, sacral wound, fistulotomy in 2019, hypertension who
presented to ER 11/05/2024 complaining of redness and swelling in the scrotum and perianal skin. Wounds to the sacrum and sensation of increasing pressure in his perineum with significant cellulitis were present. Patient was septic upon
presentation with blood cultures positive for Streptococcus pyogenes
Sepsis secondary to gram-positive cocci bacteremia, likely source soft tissue/skin
-CT scan of abdomen and pelvis ordered in the ED showed increased density of the subcutaneous tissues of the left buttocks concerning for severe cellulitis, no evidence of abscess formation, mild volume overload of third spacing. Patient was
initiated on IV vancomycin and Zosyn in the ED. Infectious disease was consulted and he was transitioned to Unasyn. Patient will be discharged home on Augmentin 875 mg po BID till 11/24/24. During his hospital stay, colorectal surgery was
consulted. Debridement with pulse lavage of perianal soft tissue infection and drain placement was done in the OR 11/09/2024. Afterwards, colostomy creation/debridement and pulse lavage left buttock wounds was done in the OR by colorectal surgeon
on 11/13. His repeat blood cultures have been negative to date. Wound care was following patient throughout the course of his hospital stay with proper wound cleaning and management of dressing.
Right-sided hydrocele; on presentation, patient complained of scrotum erythema and edema. Scrotum ultrasound was ordered which showed a small right hydrocele and a 3 mm right epididymal head cyst versus spermatocele. This imaging findings were
discussed with patient's urologist Dr. Rehan Klein 11/09, and recommendation was for outpatient follow-up as patient is asymptomatic.
Important imaging findings :
Echocardiogram 11/06/2024; Normal LV size and function with no regional wall motion abnormalities.
LVEF is 60-65% by visual estimation.
Normal diastolic function.
Dilated RV with normal systolic function.
No significant valvular disease.
Estimated pulmonary artery pressure of 31 mmHg assuming a right atrial pressure
of 3 mmHg.
No prior study available for comparison.
Operative report:
DATE OF OPERATION: 11/09/2024
PREOPERATIVE DIAGNOSIS: Perianal soft tissue infection.
SURGEON: Yg Chand MD
POSTOPERATIVE DIAGNOSIS: Perianal soft tissue infection.
INDICATIONS: The patient is a 54-year-old male, who is paraplegic
and has to selfish-digitate to defecate, and came into the hospital
with a perianal soft tissue infection. Antibiotics normalized his
white count, but he has persisted in having significant erythema
and possibly even superficial necrosis of the area. Due to these
concerns, I recommended a trip to the OR for debridement of the
area. The operation was discussed with the patient beforehand in
detail, including risks and benefits. Risks described included, but
are not limited to, bleeding, infection, potential need for further
surgery, potential for affecting bowel control or causing nerve
damage, and anesthetic risks. The patient understood and agreed to
proceed.
DESCRIPTION OF PROCEDURE: The patient was taken to the operating
room and placed under general anesthesia in lithotomy position with
the feet in candy cane stirrups. The perianal area was prepped and
draped in a sterile fashion. Local anesthetic was used to numb the
area.
On evaluation, there were three spots that were near each other on
the patient's left perianal/buttock area that appeared
superficially necrotic and indurated. There was surrounding skin
erythema. These areas were debrided sharply with a 15 blade
scalpel. The tissue that I debrided was necrotic in appearance. The
tissue was cultured. The dimensions of the areas I debrided were as
described above. Two of the areas seemed to tunnel to each other
with overlying skin bridge. I decided to connect these with a
1-inch Emma drain and secured this drain to itself with silk
stitches. Prior to placing the drain, I did pulse lavage all three
wounds and make sure there was good hemostasis. There was some
oozing from the edge of one of the wounds that required a bit of
pressure and cautery. Eventually, I was comfortable that the
procedure was complete. All the wounds were packed with
Betadine-soaked gauze and covered with dry dressings.
Discharge Plan
-
Patient Disposition: Home (Routine Discharge)
Discharge Diagnosis/Procedures: Group A strep bacteremia
Sacral cellulitis
Right-sided hydrocele
Condition: Fair
Diet: As tolerated
Activity: As tolerated
Additional Activity: No lifting over 10lbs (gallon of milk)
Driving Restrictions: No driving for 2 weeks
Bathing Restrictions: OK to Shower
Activity Restrictions/Additional Instructions:
Wound Care Instructions
Sacrum and L proximal buttock: Apply dusting of fungal powder to periwound prn pink yeasty rash, clean wounds with saline, Santyl to slough followed by saline moistened gauze and dry dressing change daily.
L Ischium and medial groin: saline wet to dry dressings, change BID, mesh underwear on top to secure.
Heels: skin prep and adhesive foams change q 3 days and prn soilage.
L 2nd toe: clean with saline, Telfa and blue tape change q 2 days and prn drainage.
Offloading heel boots when in bed
Air Mattress with frequent turning
ROHO cushion on wheelchair to continue. Recommend limit time to chair for meals only 1-2 hrs per day, until wounds heal.
Increase protein in diet
Follow up at [facility]
Referrals:
Yg Chand MD [Family Provider] - in two weeks
Additional Discharge Medication Instructions: Augmentin 875mg po bid through 11/24/24.
Prescriptions:
New
amoxicillin-pot clavulanate 875-125 mg tablet
1 tab PO BID Qty: 30 0RF
Continued
metoprolol tartrate [Lopressor] 50 mg Tablet
50 mg PO BID
aspirin 81 mg Tablet,Delayed Release (Dr/Ec)
81 mg PO DAILY
methenamine hippurate 1 gram Tablet
1 g PO BID
ascorbic acid (vitamin C) [Vitamin C] 500 mg Tablet
500 mg PO BID
lisinopril 10 mg Tablet
10 mg PO DAILY
gentamicin 40 mg/mL solution
2,400 mg Q48H
Rx Instructions:
60ML VIA IRRIGATION BLADDER
cholecalciferol (vitamin D3) [Vitamin D3] 25 mcg (1,000 unit) Tablet
25 mcg PO DAILY
omega 5-zrv-dkn-fish oil [Fish Oil] 60-90-500 mg Capsule
1 cap PO BID
Patient Own Baclofen Pump
0 mcg SC .VIA PUMP
Rx Instructions:
MORPHINE 6320MCG, BACLOFEN 494.6MCG, BUPIVACAINE 8243MCG PER DAY. BOLUS=MORPHINE 385MCG, BACLOFEN 30.1MCG, BUPIVACAINE 502MCG PER DAY
gabapentin 300 mg Capsule
300 mg PO BID
Discharge Orders:
Discharge Patient (As Directed); Ordered 11/15/24
Ordered By: Ari Garcia
Discharge Date and Time
Print Language: HONDURAN
--- NOTE | 2024-11-15 14:00 | WOUNDNOTE ---
WO RN note: Patient for discharge with TAMMY SOLORIO. Stoma pink about 2 inches budded and pink. Stool loose mushy brown. Peristomal skin with some red irritated skin at 5 o'clock from minimal stool leakage. Instructed patient how to open and close pouch,
use of no sting barrier wipe to red peristomal skin, and how to change appliance using Marvell wafer # [id number], moldable ring and Marvell pouch #[id number]. Patient gave verbal permission to order a Marvell ostomy secure starter kit. Skin on heels
intact. Patient taking home a Waffle static air overlay mattress for his hospital bed at home. Manual pump for air overlay given. Patient has a wheelchair Roho cushion at home.
--- NOTE | 2024-11-15 14:06 | WOUNDNOTE ---
WO RN note: Patient for discharge with TAMMY SOLORIO. Stoma pink about 2 inches budded and pink. Peristomal skin with some red irritated skin at 5 o'clock from some stool leakage. Instructed patient how to open and close pouch, change appliance using
[place] wafer # [id number], moldable ring and Daljit pouch $ 86500.
--- NOTE | 2024-11-15 14:25 | WOUNDNOTE ---
WOC RN note: jose daniel Bocanegra, Spoke with Naomi and ordered an ostomy secure starter kit.
[2024-11-15 15:00] VITALS: BP 115/57
--- NOTE | 2024-11-15 15:30 | W.PN.ID1 ---
Date of Service
Date of Service: November 15, 2024
Today's Communication
To dc home on Augmentin 875mg po bid through 11/24/24.
Assessment / Plan
Buttock cellulitis/SSTI
Group A strep Bacteremia (2 of 4 bottles)
Leukocytosis resolved
Fever resolved
Hyponatremia
Hx paraplegia following T6 AVM surgery
Recommendations:
Blood cultures with Group A strep (Streptococcus pyogenes)
Repeat blood cultures neg
Perianal wound swab, GAS, MSSA, E.coli, dipth
11/09/24 s/p OR I+D, 3 areas of necrotic fat noted
OR cx Group A strep
11/13/24 s/p diverting colostomy
s/p 3d clindamycin as a toxin inhibitor
On Unasyn (d 11 abx)
To dc home on Augmentin 875mg po bid through 11/24/24.
. ����������������������������������������������������������
Chief Complaint
-: Other (Perirectal infection)
Subjective / Review of Systems
Tolerating advanced diet.
Vital Signs / Physical Exam
Vital Signs
Vital Signs
Temp Pulse Resp BP Pulse Ox
98.2 F 63 18 123/62 98
11/15/24 07:00 11/15/24 09:07 11/15/24 07:00 11/15/24 09:07 11/15/24 07:00
Physical Exam
Constitutional: No Acute Distress and Comfortable
Cardiovascular: Regular Rate and S1/S2
Pulmonary: Clear
Gastrointestinal: Soft, Non Tender and Non Distended
Wound: Other (Reviewed 11/14 wound photos: left buttock 2 wounds with areas of fat necrosis.)
Neurological: AO x 3
Objective Data
Lab Data
Lab Results
11/15/24 12:21
11/15/24 06:52
PT 15.6 Sec (11.4-14.6) H 11/13/24 08:36
INR 1.21 11/13/24 08:36
APTT 31.8 Sec (23.4-35.0) 11/13/24 08:36
Estimated Creat Clear > 125 ml/min 11/15/24 06:52
Lactic Acid Cancelled 11/05/24 18:00
Total Bilirubin 0.5 mg/dl (0.2-1.3) 11/06/24 07:37
AST 40 U/L (17-59) 11/06/24 07:37
ALT 33 U/L (0-50) 11/06/24 07:37
Alkaline Phosphatase 73 U/L (38-126) 11/06/24 07:37
Most recent labs reviewed.
Micro Results:
11/09/24 16:04 Wound Culture - Final
Arely-anal Streptococcus pyogenes
Gram Stain - Final
11/09/24 16:04 Anaerobic Culture - Final
Arely-anal NO ANAEROBES ISOLATED
11/05/24 15:22 Blood Culture - Final
Blood/Venous Streptococcus pyogenes
Gram Stain - Final
11/05/24 14:18 Blood Culture - Final
Blood/Venous Streptococcus pyogenes
Gram Stain - Final
11/07/24 08:38 Blood Culture - Final
Blood/Venous No Growth - Final Report
11/07/24 07:33 Blood Culture - Final
Blood/Venous No Growth - Final Report
11/06/24 10:13 Blood Culture - Final
Blood/Venous No Growth - Final Report
11/06/24 09:29 Blood Culture - Final
Blood/Venous No Growth - Final Report
11/05/24 22:09 Wound Culture - Final
Back S aureus-Methicillin Sensitive
Escherichia coli
Streptococcus pyogenes
Diptheroids
Gram Stain - Final
Imaging:
11/05/2024 CT abdomen/pelvis: There is increased density in the subcutaneous tissues of the left buttock concerning for severe cellulitis. No evidence for abscess formation. Diffuse bladder wall thickening is noted, but stable. There is mild fecal
material in the colon. Please see full dictation for additional detail.
[2024-11-15] MEDS: TORADOL IV (16:37)
== END 2024-11-15 17:06 | disposition home health service (06) | DRG 854 ==
LOC: 1 ACUTE 18:44
PROVIDERS: Emergency Medicine; Physician Assistant; Registered Nurse; Student in an Organized Health Care Education/Training Program; ADMITTING PHYSICIAN Hospitalist; ATTENDING PHYSICIAN Internal Medicine; CONSULT PHYSICIAN Surgery; EMERGENCY PHYSICIAN Emergency Medicine; OTHER PHYSICIAN Internal Medicine Infectious Disease
PROC: 0JB90ZZ Excision of Buttock Subcutaneous Tissue and Fascia, Open Approach (ICD-10-PCS; 2024-11-10)
PROC: 0D1L4Z4 Bypass Transverse Colon to Cutaneous, Percutaneous Endoscopic Approach (ICD-10-PCS; 2024-11-13)
DX: A40.0 Sepsis due to streptococcus, group A (principal); D62 Acute posthemorrhagic anemia; E87.1 Hypo-osmolality and hyponatremia; L03.317 Cellulitis of buttock; G82.20 Paraplegia, unspecified; N49.2 Inflammatory disorders of scrotum; I10 Essential (primary) hypertension; B00.1 Herpesviral vesicular dermatitis
CPT/HCPCS: 74177; 76870; 80048; 80053; 80202; 83605; 83735; 83930; 85014; 85018; 85025; 85027; 85610; 85730; 86850; 86900; 86901; 87040; 87070; 87075; 87077; 87147; 87186; 87205; 93306; 93976; 96365; 96366; 96367; 97162; 97166; 97168; 97530; 99291; Q9967